=== PATIENT | female | born 1940 | race African-American/Black ===

== ENCOUNTER → 2016-05-19 | Outpatient (CLI) | payer MEDICARE, OTHER ==
[2016-05-19 10:57] LABS: ABSOLUTE EOSINOPHILS # (AUTO) 0.1 10^3/uL (0.0-0.6); ABSOLUTE LYMPHOCYTES (AUTO) 1.3 10^3/uL (0.5-4.7); ABSOLUTE MONOCYTES (AUTO) 0.5 10^3/uL (0.1-1.4); ABSOLUTE NEUT (AUTO) 1.7 10^3/uL (1.7-8.2); BASOPHILS % (AUTO) 1.2 % (0-2); HEMATOCRIT 39.5 % (36.0-47.0); HEMOGLOBIN 12.3 g/dL (12.0-15.5); HGB HCT DIFFERENCE -2.6; LYMPHOCYTES % (AUTO) 36.4 % (13-45); MEAN CORPUSCULAR HEMOGLOBIN 29.5 pg (27.0-33.4); MEAN CORPUSCULAR HGB CONC 31.3 g/dL (32.0-36.0); MEAN CORPUSCULAR VOLUME 94 fl (80-97); MONOCYTES % (AUTO) 13.8 % (3-13); RED BLOOD COUNT 4.18 10^6/uL (3.72-5.28); RED CELL DISTRIBUTION WIDTH 13.8 % (11.5-14.0); SEGMENTED NEUTROPHILS % (AUTO) 45.6 % (42-78); WHITE BLOOD COUNT 3.7 10^3/uL (4.0-10.5)
[2016-05-19 11:32] LABS: ALANINE AMINOTRANSFERASE 22 U/L (9-52); ALBUMIN 3.6 g/dL (3.5-5.0); ALKALINE PHOSPHATASE 86 U/L (38-126); ANION GAP 12 (5-19); ASPARTATE AMINO TRANSFERASE 21 U/L (14-36); BILIRUBIN,TOTAL 0.5 mg/dL (0.2-1.3); BLOOD UREA NITROGEN 16 mg/dL (7-20); CALCIUM 8.7 mg/dL (8.4-10.2); CARBON DIOXIDE 27 mmol/L (22-30); CHLORIDE 103 mmol/L (98-107); GLUCOSE 102 mg/dL (75-110); POTASSIUM 4.3 mmol/L (3.6-5.0); SODIUM 141.5 mmol/L (137-145); TOTAL PROTEIN 6.7 g/dL (6.3-8.2)
[2016-05-19 11:35] LABS: FREE T3 2.72 pg/mL (2.77-5.27)
[2016-05-19 11:49] LABS: THYROID STIMULATING HORMONE 1.39 uIU/mL (0.47-4.68)
[2016-05-20 14:38] LABS: CREATININE URINE 159.2 mg/dL (Not Estab.); MICROALBUMIN URINE 7.8 ug/mL (Not Estab.)
== END ==
LOC: OD 09:23
PROVIDERS: ATTEND Family Medicine
DX: E11.9 Type 2 diabetes mellitus without complications (principal); E89.0 Postprocedural hypothyroidism; Z79.899 Other long term (current) drug therapy
CPT/HCPCS: 36415; 80048; 80076; 82043; 82570; 83036; 84439; 84443; 84481; 85025

== ENCOUNTER → 2016-08-17 | Outpatient (CLI) | payer MEDICARE, OTHER ==
[2016-08-17 10:59] LABS: ABSOLUTE BASOPHILS # (AUTO) 0.1 10^3/uL (0.0-0.2); ABSOLUTE EOSINOPHILS # (AUTO) 0.1 10^3/uL (0.0-0.6); ABSOLUTE LYMPHOCYTES (AUTO) 1.2 10^3/uL (0.5-4.7); ABSOLUTE MONOCYTES (AUTO) 0.6 10^3/uL (0.1-1.4); ABSOLUTE NEUT (AUTO) 2.1 10^3/uL (1.7-8.2); EOSINOPHILS % (AUTO) 1.9 % (0-6); HEMATOCRIT 37.4 % (36.0-47.0); HEMOGLOBIN 12.5 g/dL (12.0-15.5); HGB HCT DIFFERENCE 0.1; LYMPHOCYTES % (AUTO) 29.5 % (13-45); MEAN CORPUSCULAR HEMOGLOBIN 29.9 pg (27.0-33.4); MEAN CORPUSCULAR HGB CONC 33.4 g/dL (32.0-36.0); MEAN CORPUSCULAR VOLUME 89 fl (80-97); MONOCYTES % (AUTO) 15.2 % (3-13); RED BLOOD COUNT 4.18 10^6/uL (3.72-5.28); RED CELL DISTRIBUTION WIDTH 13.7 % (11.5-14.0); SEGMENTED NEUTROPHILS % (AUTO) 51.4 % (42-78); WHITE BLOOD COUNT 4.1 10^3/uL (4.0-10.5)
[2016-08-17 11:24] LABS: ALANINE AMINOTRANSFERASE 31 U/L (9-52); ALBUMIN 3.9 g/dL (3.5-5.0); ALKALINE PHOSPHATASE 98 U/L (38-126); ANION GAP 12 (5-19); ASPARTATE AMINO TRANSFERASE 19 U/L (14-36); BILIRUBIN,DIRECT 0.1 mg/dL (0.0-0.4); BILIRUBIN,TOTAL 0.6 mg/dL (0.2-1.3); BLOOD UREA NITROGEN 14 mg/dL (7-20); CALCIUM 9.3 mg/dL (8.4-10.2); CARBON DIOXIDE 24 mmol/L (22-30); CHLORIDE 104 mmol/L (98-107); CREATININE RESULT 0.69 mg/dL (0.52-1.25); GLUCOSE 122 mg/dL (75-110); POTASSIUM 4.4 mmol/L (3.6-5.0); TOTAL PROTEIN 6.9 g/dL (6.3-8.2)
[2016-08-17 11:40] LABS: FREE T3 3.01 pg/mL (2.77-5.27)
[2016-08-17 11:54] LABS: THYROID STIMULATING HORMONE 0.13 uIU/mL (0.47-4.68)
== END ==
LOC: OD 09:45
PROVIDERS: ATTEND Family Medicine
DX: Z79.899 Other long term (current) drug therapy (principal); E89.0 Postprocedural hypothyroidism; E11.9 Type 2 diabetes mellitus without complications
CPT/HCPCS: 36415; 80053; 83036; 84439; 84443; 84481; 85025

== ENCOUNTER → 2016-11-20 | Outpatient (CLI) | payer MEDICARE, OTHER ==
[2016-11-20 11:49] LABS: ABSOLUTE EOSINOPHILS # (AUTO) 0.1 10^3/uL (0.0-0.6); ABSOLUTE LYMPHOCYTES (AUTO) 1.2 10^3/uL (0.5-4.7); ABSOLUTE MONOCYTES (AUTO) 0.6 10^3/uL (0.1-1.4); ABSOLUTE NEUT (AUTO) 1.8 10^3/uL (1.7-8.2); BASOPHILS % (AUTO) 1.3 % (0-2); HEMATOCRIT 39.7 % (36.0-47.0); HEMOGLOBIN 13.1 g/dL (12.0-15.5); HGB HCT DIFFERENCE -0.4; LYMPHOCYTES % (AUTO) 32.6 % (13-45); MEAN CORPUSCULAR HEMOGLOBIN 30.4 pg (27.0-33.4); MEAN CORPUSCULAR VOLUME 92 fl (80-97); MONOCYTES % (AUTO) 15.2 % (3-13); RED BLOOD COUNT 4.32 10^6/uL (3.72-5.28); RED CELL DISTRIBUTION WIDTH 14.4 % (11.5-14.0); SEGMENTED NEUTROPHILS % (AUTO) 48.9 % (42-78); WHITE BLOOD COUNT 3.6 10^3/uL (4.0-10.5)
[2016-11-20 11:53] LABS: APPEARANCE,URINE CLEAR; BILIRUBIN,URINE NEGATIVE (NEGATIVE); GLUCOSE, URINE NEGATIVE (NEGATIVE); KETONES,URINE NEGATIVE (NEGATIVE); LEUKOCYTE ESTERASE,URINE TRACE (NEGATIVE); NITRITE,URINE NEGATIVE (NEGATIVE); PROTEIN,URINE NEGATIVE (NEGATIVE); URINE SPECIFIC GRAVITY 1.016; UROBILINOGEN,URINE NEGATIVE mg/dL (<2.0)
[2016-11-20 12:17] LABS: CHOLESTEROL 130.14 mg/dL (0-200); Direct HDL 53 mg/dL (>40); TRIGLYCERIDES 45 mg/dL (<150)
[2016-11-20 12:18] LABS: ALANINE AMINOTRANSFERASE 29 U/L (9-52); ALBUMIN 3.8 g/dL (3.5-5.0); ALKALINE PHOSPHATASE 89 U/L (38-126); ANION GAP 8 (5-19); ASPARTATE AMINO TRANSFERASE 21 U/L (14-36); BILIRUBIN,DIRECT 0.3 mg/dL (0.0-0.4); BILIRUBIN,TOTAL 0.7 mg/dL (0.2-1.3); BLOOD UREA NITROGEN 15 mg/dL (7-20); CALCIUM 9.3 mg/dL (8.4-10.2); CARBON DIOXIDE 28 mmol/L (22-30); CHLORIDE 103 mmol/L (98-107); CREATININE RESULT 0.94 mg/dL (0.52-1.25); GLUCOSE 110 mg/dL (75-110); POTASSIUM 4.1 mmol/L (3.6-5.0); SODIUM 139.4 mmol/L (137-145)
[2016-11-20 12:30] LABS: DIRECT LDL 65 mg/dL (<100)
[2016-11-20 12:38] LABS: FREE T3 3.27 pg/mL (2.77-5.27)
[2016-11-20 12:52] LABS: THYROID STIMULATING HORMONE 0.28 uIU/mL (0.47-4.68)
[2016-11-21 10:38] LABS: CREATININE URINE 157.9 mg/dL (Not Estab.); MICROALBUMIN URINE 7.6 ug/mL (Not Estab.)
== END ==
LOC: OD 09:59
PROVIDERS: ATTEND Family Medicine
DX: E89.0 Postprocedural hypothyroidism (principal); E11.9 Type 2 diabetes mellitus without complications; E78.5 Hyperlipidemia, unspecified; Z79.01 Long term (current) use of anticoagulants; Z79.899 Other long term (current) drug therapy
CPT/HCPCS: 36415; 80053; 80061; 81001; 82043; 82570; 83036; 83540; 83550; 84439; 84443; 84481; 85025

== ENCOUNTER → 2017-02-05 | Outpatient (CLI) | payer MEDICARE, OTHER ==
[2017-02-05 14:29] LABS: ANION GAP 10 (5-19); BLOOD UREA NITROGEN 18 mg/dL (7-20); CALCIUM 9.5 mg/dL (8.4-10.2); CARBON DIOXIDE 24 mmol/L (22-30); CHLORIDE 106 mmol/L (98-107); CREATININE RESULT 0.75 mg/dL (0.52-1.25); GLUCOSE 127 mg/dL (75-110); POTASSIUM 4.2 mmol/L (3.6-5.0); SODIUM 139.6 mmol/L (137-145)
== END ==
LOC: OD 13:36
PROVIDERS: ATTEND Family Medicine
DX: E11.9 Type 2 diabetes mellitus without complications (principal)
CPT/HCPCS: 36415; 80048; 83036

== ENCOUNTER → 2017-03-22 | Outpatient (CLI) | payer MEDICARE, OTHER ==
--- NOTE | 2017-03-22 10:44 | WOMENS IMAGING REPORT ---
EXAM DESCRIPTION: BONE DENSITY HIP/SPINE COMPLETED DATE/TIME: 03/22/2017 10:09 am REASON FOR STUDY: SCREENING MAMMO,HX OF HEALED OSTEO FX Z12.31 ENCNTR SCREEN MAMMOGRAM FOR MALIGNAN T NEOPLASM OF EMILIE Z87.310 PERSONAL HISTORY OF (HEALED) OSTEOPOROSIS FRACTURE COMPARISON: 2003, 2006 TECHNIQUE: Dual-Energy X-ray Absorptiometry (DEXA) of the AP Spine and Hip. LIMITATIONS: None. FINDINGS: LUMBAR SPINE: The bone mineral density (BMD) measured from L1-L4 in the AP projection correlates with a T-score of +0.6, which is normal as defined by the World Health Organization. This is similar compared to previ ous exams HIP: The bone mineral density (BMD) measured in the left femoral neck at the hip correlates with a T-score of +0.6, which is normal as defined by the World Health Organization. This is similar compared to p revious exams IMPRESSION: 1. LUMBAR SPINE: Normal 2. HIP: Normal COMMENT: The World Health Organization defines low BMD as follows: T-score: Normal: Greater than -1.0 Osteopenia: Between -1.0 and -2.5 Osteoporosis: Less than -2.5 without fractures Established osteoporosis: Less than -2.5 with fractures In general, you may wish to consider: Diagnosis Treatment Follow-up DEXA Normal BMD Prevention 2-3 years Osteopenia Prevention/Therapy 1-2 years Osteoporosis Therapy Yearly TECHNICAL DOCUMENTATION: JOB ID: [id number]- All Rights Reserved
--- NOTE | 2017-03-22 16:08 | WOMENS IMAGING REPORT ---
EXAM DESCRIPTION: BILAT SCREENING MAMMO W/CAD COMPLETED DATE/TIME: 03/22/2017 10:09 am REASON FOR STUDY: SCREENING MAMMO,HX OF HEALED OSTEO FX Z12.31 ENCNTR SCREEN MAMMOGRAM FOR MALIGNAN T NEOPLASM OF EMILIE Z87.310 PERSONAL HISTORY OF (HEALED) OSTEOPOROSIS FRACTURE COMPARISON: 2009, 2010 TECHNIQUE: Standard craniocaudal and mediolateral oblique views of each breast recorded using digita l acquisition. LIMITATIONS: None. FINDINGS: No masses, calcifications or architectural distortion. No areas of suspicion. Read with the assistance of CAD. .[facility] - R2 Cenova Version 1.3 .[facility] - R2 Cenova Version 1.3 .[facility] - R2 Cenova Version 2.4 .[facility] - R2 Cenova Version 2.4 .[facility] - R2 Bottle Carrier Version 9.2 IMPRESSION: NORMAL MAMMOGRAM. BIRADS 1. BREAST DENSITY: b. There are scattered areas of fibroglandular density. BIRAD: 1 NEGATIVE RECOMMENDATION: ROUTINE SCREENING COMMENT: The patient has been notified of the results by letter per SA requirements. Additional no tification policies are in place for contacting patient with suspicious or incomplete findings. Quality ID #[id number]: The [employer] recommends an annual screening mammogram for women aged 40 years or over. This facility utilizes a reminder system to ensure that all patients receive reminder letters, and/or direct phone calls for appointments. This includes reminders for routine scr eening mammograms, diagnostic mammograms, or other Breast Imaging Interventions when appropriate. Th is patient will be placed in the appropriate reminder system. The [employer] (ACR) has developed recommendations for screening MRI of the breast s in certain patient populations, to be used in conjunction with mammography. Breast MRI surveillanc e may be appropriate for women with more than 20% lifetime risk of developing breast cancer as deter mined by genetic testing, significant family history of the disease, or history of mantle radiation f or Hodgkins Disease. ACR Practice Guidelines 2008. TECHNICAL DOCUMENTATION: FINDING NUMBER: (1) ASSESSMENT: (1) JOB ID: [id number] [employer]- All Rights Reserved
== END ==
LOC: WI 09:26
PROVIDERS: ATTEND Family Medicine
DX: Z12.31 Encounter for screening mammogram for malignant neoplasm of breast (principal); Z87.310 Personal history of (healed) osteoporosis fracture
CPT/HCPCS: 77080; G0202; 77067

== ENCOUNTER → 2017-08-07 | Outpatient (CLI) | payer MEDICARE, OTHER ==
[2017-08-07 11:25] LABS: ABSOLUTE EOSINOPHILS # (AUTO) 0.1 10^3/uL (0.0-0.6); ABSOLUTE LYMPHOCYTES (AUTO) 1.3 10^3/uL (0.5-4.7); ABSOLUTE MONOCYTES (AUTO) 0.6 10^3/uL (0.1-1.4); ABSOLUTE NEUT (AUTO) 1.6 10^3/uL (1.7-8.2); BASOPHILS % (AUTO) 1.2 % (0-2); EOSINOPHILS % (AUTO) 1.7 % (0-6); HEMATOCRIT 39.6 % (36.0-47.0); HEMOGLOBIN 13.4 g/dL (12.0-15.5); LYMPHOCYTES % (AUTO) 35.6 % (13-45); MEAN CORPUSCULAR HGB CONC 33.9 g/dL (32.0-36.0); MEAN CORPUSCULAR VOLUME 91 fl (80-97); MONOCYTES % (AUTO) 16.6 % (3-13); PLATELET COUNT 240 10^3/uL (150-450); RED BLOOD COUNT 4.33 10^6/uL (3.72-5.28); RED CELL DISTRIBUTION WIDTH 13.5 % (11.5-14.0); SEGMENTED NEUTROPHILS % (AUTO) 44.9 % (42-78); TOTAL CELLS COUNTED % (AUTO) 100 %; WHITE BLOOD COUNT 3.7 10^3/uL (4.0-10.5)
[2017-08-07 11:57] LABS: ALANINE AMINOTRANSFERASE 32 U/L (9-52); ALBUMIN 3.9 g/dL (3.5-5.0); ALKALINE PHOSPHATASE 86 U/L (38-126); ANION GAP 5 (5-19); ASPARTATE AMINO TRANSFERASE 23 U/L (14-36); BILIRUBIN,DIRECT 0.3 mg/dL (0.0-0.4); BILIRUBIN,TOTAL 0.6 mg/dL (0.2-1.3); BLOOD UREA NITROGEN 15 mg/dL (7-20); CALCIUM 9.8 mg/dL (8.4-10.2); CARBON DIOXIDE 32 mmol/L (22-30); CHLORIDE 105 mmol/L (98-107); GLUCOSE 121 mg/dL (75-110); POTASSIUM 4.5 mmol/L (3.6-5.0); SODIUM 141.9 mmol/L (137-145); TOTAL PROTEIN 7.2 g/dL (6.3-8.2); TRIGLYCERIDES 56 mg/dL (<150)
[2017-08-07 12:07] LABS: DIRECT LDL 113 mg/dL (<100)
[2017-08-07 12:08] LABS: FREE T3 3.11 pg/mL (2.77-5.27); FREE T4 (FREE THYROXINE) 1.43 ng/dL (0.78-2.19)
[2017-08-07 12:22] LABS: THYROID STIMULATING HORMONE 0.04 uIU/mL (0.47-4.68)
[2017-08-08 10:38] LABS: CREATININE URINE 168.5 mg/dL (Not Estab.); MICROALBUMIN URINE 8.8 ug/mL (Not Estab.)
== END ==
LOC: OD 10:33
PROVIDERS: ATTEND Family Medicine
DX: E89.0 Postprocedural hypothyroidism (principal); E11.9 Type 2 diabetes mellitus without complications; E78.5 Hyperlipidemia, unspecified; Z79.01 Long term (current) use of anticoagulants; Z79.899 Other long term (current) drug therapy
CPT/HCPCS: 36415; 80053; 80061; 82043; 82570; 83036; 84439; 84443; 84481; 85025

== ENCOUNTER → 2017-12-06 | Outpatient (CLI) | payer MEDICARE, OTHER ==
[2017-12-06 11:43] LABS: ALANINE AMINOTRANSFERASE 28 U/L (9-52); ALBUMIN 3.6 g/dL (3.5-5.0); ALKALINE PHOSPHATASE 83 U/L (38-126); ANION GAP 10 (5-19); ASPARTATE AMINO TRANSFERASE 21 U/L (14-36); BILIRUBIN,DIRECT 0.2 mg/dL (0.0-0.4); BILIRUBIN,TOTAL 0.7 mg/dL (0.2-1.3); BLOOD UREA NITROGEN 13 mg/dL (7-20); CALCIUM 8.8 mg/dL (8.4-10.2); CARBON DIOXIDE 26 mmol/L (22-30); CHLORIDE 105 mmol/L (98-107); CHOLESTEROL 118.78 mg/dL (0-200); CREATINE KINASE 105 U/L (30-135); GLUCOSE 112 mg/dL (75-110); POTASSIUM 4.2 mmol/L (3.6-5.0); SODIUM 141.4 mmol/L (137-145); TOTAL PROTEIN 6.7 g/dL (6.3-8.2); TRIGLYCERIDES 52 mg/dL (<150)
[2017-12-06 11:53] LABS: FREE T3 3.2 pg/mL (2.77-5.27); FREE T4 (FREE THYROXINE) 1.64 ng/dL (0.78-2.19)
[2017-12-06 11:55] LABS: DIRECT LDL 57 mg/dL (<100)
[2017-12-06 12:07] LABS: THYROID STIMULATING HORMONE 0.43 uIU/mL (0.47-4.68)
== END ==
LOC: OD 09:58
PROVIDERS: ATTEND Family Medicine
DX: E78.5 Hyperlipidemia, unspecified (principal); E89.0 Postprocedural hypothyroidism; E11.9 Type 2 diabetes mellitus without complications
CPT/HCPCS: 36415; 80048; 80061; 80076; 82550; 83036; 84439; 84443; 84481

== ENCOUNTER → 2018-02-12 | Outpatient (CLI) | payer MEDICARE, OTHER ==
[2018-02-12 13:51] LABS: ABSOLUTE EOSINOPHILS # (AUTO) 0.1 10^3/uL (0.0-0.6); ABSOLUTE LYMPHOCYTES (AUTO) 1.3 10^3/uL (0.5-4.7); ABSOLUTE MONOCYTES (AUTO) 0.6 10^3/uL (0.1-1.4); ABSOLUTE NEUT (AUTO) 2.2 10^3/uL (1.7-8.2); BASOPHILS % (AUTO) 1.1 % (0-2); EOSINOPHILS % (AUTO) 1.3 % (0-6); HEMATOCRIT 38.4 % (36.0-47.0); HEMOGLOBIN 12.9 g/dL (12.0-15.5); LYMPHOCYTES % (AUTO) 30.7 % (13-45); MEAN CORPUSCULAR HEMOGLOBIN 31.3 pg (27.0-33.4); MEAN CORPUSCULAR HGB CONC 33.6 g/dL (32.0-36.0); MEAN CORPUSCULAR VOLUME 93 fl (80-97); MONOCYTES % (AUTO) 13.5 % (3-13); PLATELET COUNT 229 10^3/uL (150-450); RED BLOOD COUNT 4.12 10^6/uL (3.72-5.28); SEGMENTED NEUTROPHILS % (AUTO) 53.4 % (42-78); TOTAL CELLS COUNTED % (AUTO) 100 %; WHITE BLOOD COUNT 4.1 10^3/uL (4.0-10.5)
== END ==
LOC: OD 12:29
PROVIDERS: ATTEND Family Medicine
DX: I48.2 Chronic atrial fibrillation (principal); Z79.01 Long term (current) use of anticoagulants
CPT/HCPCS: 36415; 85025

== ENCOUNTER → 2018-04-02 | Outpatient (CLI) | payer MEDICARE, OTHER ==
--- NOTE | 2018-04-02 12:13 | WOMENS IMAGING REPORT ---
EXAM DESCRIPTION: 3D SCREENING MAMMO BILAT COMPLETED DATE/TIME: 04/02/2018 10:51 am REASON FOR STUDY: SCREENING MAMMO Z12.31 ENCNTR SCREEN MAMMOGRAM FOR MALIGNANT NEOPLASM OF EMILIE COMPARISON: Multiple since 2009 TECHNIQUE: Standard craniocaudal and mediolateral oblique views of each breast recorded using digita l acquisition and breast tomosynthesis. LIMITATIONS: None. FINDINGS: No masses, calcifications or architectural distortion. No areas of suspicion. Read with the assistance of CAD. .[facility] - R2 Cenova Version 1.3 .[facility] Imaging - R2 Cenova Version 1.3 .[facility] Imaging - R2 Cenova Version 2.4 .[facility] - R2 Cenova Version 2.4 .[facility] - R2 Geriatric Social Worker Version 9.2 IMPRESSION: NORMAL MAMMOGRAM. BIRADS 1. BREAST DENSITY: b. There are scattered areas of fibroglandular density. BIRAD: 1 NEGATIVE RECOMMENDATION: ROUTINE SCREENING Please continue yearly bilateral screening mammography/tomosynthesis in March 2019 COMMENT: The patient has been notified of the results by letter per SA requirements. Additional no tification policies are in place for contacting patient with suspicious or incomplete findings. Quality ID #[id number]: The [employer] recommends an annual screening mammogram for women aged 40 years or over. This facility utilizes a reminder system to ensure that all patients receive reminder letters, and/or direct phone calls for appointments. This includes reminders for routine scr eening mammograms, diagnostic mammograms, or other Breast Imaging Interventions when appropriate. Th is patient will be placed in the appropriate reminder system. The [employer] (ACR) has developed recommendations for screening MRI of the breast s in certain patient populations, to be used in conjunction with mammography. Breast MRI surveillanc e may be appropriate for women with more than 20% lifetime risk of developing breast cancer as deter mined by genetic testing, significant family history of the disease, or history of mantle radiation f or Hodgkins Disease. ACR Practice Guidelines 2008. DBT Technology DBT is a type of tomographic mammography. With conventional mammography, overlapping breast tissue ma y make lesions difficult to detect, even with good compression. DBT uses an x-ray tube that rotates a round the breast, taking images at different angles. These images are then combined to create thin sl ices of the breast that the radiologist can view as a 3D reconstruction. The Metafused unit can perform full-field digital mammograms (2D imaging); or DBT (3D imaging); or both, in a combination mode that quickly performs both the mammogram and the tomosynthesis scan while the breast is still compressed. PQRS 6045F: Fluoroscopic imaging is not utilized for breast tomosynthesis. TECHNICAL DOCUMENTATION: FINDING NUMBER: (1) ASSESSMENT: (1) JOB ID: [id number] [employer]- All Rights Reserved Reading location - IP/workstation name: [email or web address]-RR2
== END ==
LOC: WI 10:12
PROVIDERS: ATTEND Family Medicine
DX: Z12.31 Encounter for screening mammogram for malignant neoplasm of breast (principal)
CPT/HCPCS: 77063; 77067

== ENCOUNTER → 2018-06-12 | Outpatient (CLI) | payer MEDICARE, OTHER ==
[2018-06-12 08:50] LABS: ABSOLUTE EOSINOPHILS # (AUTO) 0.1 10^3/uL (0.0-0.6); ABSOLUTE LYMPHOCYTES (AUTO) 1.6 10^3/uL (0.5-4.7); ABSOLUTE MONOCYTES (AUTO) 0.5 10^3/uL (0.1-1.4); ABSOLUTE NEUT (AUTO) 1.5 10^3/uL (1.7-8.2); BASOPHILS % (AUTO) 1.2 % (0-2); EOSINOPHILS % (AUTO) 2.3 % (0-6); HEMATOCRIT 39.9 % (36.0-47.0); HEMOGLOBIN 13.6 g/dL (12.0-15.5); LYMPHOCYTES % (AUTO) 43.2 % (13-45); MEAN CORPUSCULAR HEMOGLOBIN 31.8 pg (27.0-33.4); MEAN CORPUSCULAR VOLUME 94 fl (80-97); PLATELET COUNT 172 10^3/uL (150-450); RED BLOOD COUNT 4.27 10^6/uL (3.72-5.28); RED CELL DISTRIBUTION WIDTH 14.2 % (11.5-14.0); SEGMENTED NEUTROPHILS % (AUTO) 40.3 % (42-78); TOTAL CELLS COUNTED % (AUTO) 100 %; WHITE BLOOD COUNT 3.7 10^3/uL (4.0-10.5)
== END ==
LOC: OD 08:10
PROVIDERS: ATTEND Family Medicine
DX: E11.9 Type 2 diabetes mellitus without complications (principal); Z79.01 Long term (current) use of anticoagulants
CPT/HCPCS: 36415; 83036; 85025

== ENCOUNTER → 2018-08-07 | Outpatient (CLI) | payer MEDICARE, OTHER ==
[2018-08-07 10:59] LABS: ALANINE AMINOTRANSFERASE 21 U/L (9-52); ALBUMIN 3.8 g/dL (3.5-5.0); ALKALINE PHOSPHATASE 93 U/L (38-126); ANION GAP 5 (5-19); ASPARTATE AMINO TRANSFERASE 22 U/L (14-36); BILIRUBIN,DIRECT 0.3 mg/dL (0.0-0.4); BILIRUBIN,TOTAL 0.5 mg/dL (0.2-1.3); BLOOD UREA NITROGEN 17 mg/dL (7-20); CALCIUM 9.5 mg/dL (8.4-10.2); CARBON DIOXIDE 29 mmol/L (22-30); CHLORIDE 106 mmol/L (98-107); CHOLESTEROL 161.19 mg/dL (0-200); GLUCOSE 118 mg/dL (75-110); POTASSIUM 4.2 mmol/L (3.6-5.0); SODIUM 140.3 mmol/L (137-145); TOTAL PROTEIN 7.1 g/dL (6.3-8.2); TRIGLYCERIDES 56 mg/dL (<150)
[2018-08-07 11:10] LABS: DIRECT LDL 101 mg/dL (<100)
[2018-08-08 12:38] LABS: CREATININE URINE 190.3 mg/dL (Not Estab.); MICROALBUMIN URINE 22.4 ug/mL (Not Estab.)
== END ==
LOC: OD 09:52
PROVIDERS: ATTEND Family Medicine
DX: E11.9 Type 2 diabetes mellitus without complications (principal); E78.5 Hyperlipidemia, unspecified; I10 Essential (primary) hypertension
CPT/HCPCS: 36415; 80053; 80061; 82043; 82570

== ENCOUNTER → 2018-08-23 | Outpatient (CLI) | payer MEDICARE, OTHER ==
[2018-08-23 08:29] LABS: ABSOLUTE EOSINOPHILS # (AUTO) 0.1 10^3/uL (0.0-0.6); ABSOLUTE LYMPHOCYTES (AUTO) 1.2 10^3/uL (0.5-4.7); ABSOLUTE MONOCYTES (AUTO) 0.5 10^3/uL (0.1-1.4); ABSOLUTE NEUT (AUTO) 1.7 10^3/uL (1.7-8.2); BASOPHILS % (AUTO) 1.3 % (0-2); EOSINOPHILS % (AUTO) 1.8 % (0-6); HEMATOCRIT 37.6 % (36.0-47.0); HEMOGLOBIN 12.7 g/dL (12.0-15.5); LYMPHOCYTES % (AUTO) 34.2 % (13-45); MEAN CORPUSCULAR HEMOGLOBIN 31.6 pg (27.0-33.4); MEAN CORPUSCULAR HGB CONC 33.8 g/dL (32.0-36.0); MEAN CORPUSCULAR VOLUME 93 fl (80-97); MONOCYTES % (AUTO) 13.7 % (3-13); PLATELET COUNT 217 10^3/uL (150-450); RED BLOOD COUNT 4.03 10^6/uL (3.72-5.28); RED CELL DISTRIBUTION WIDTH 14.2 % (11.5-14.0); TOTAL CELLS COUNTED % (AUTO) 100 %; WHITE BLOOD COUNT 3.5 10^3/uL (4.0-10.5)
[2018-08-23 09:16] LABS: FREE T3 2.97 pg/mL (2.77-5.27); FREE T4 (FREE THYROXINE) 1.25 ng/dL (0.78-2.19)
[2018-08-23 09:30] LABS: THYROID STIMULATING HORMONE 7.61 uIU/mL (0.47-4.68)
== END ==
LOC: OD 07:58
PROVIDERS: ATTEND Family Medicine
DX: E89.0 Postprocedural hypothyroidism (principal); Z79.01 Long term (current) use of anticoagulants
CPT/HCPCS: 36415; 84439; 84443; 84481; 85025

== ENCOUNTER 2018-09-27 18:54 | Observation (INO) | payer MEDICARE, OTHER ==
--- NOTE | 2018-09-27 19:11 | ER Document Report ---
ED Medical Screen (RME) - General Chief Complaint: S/S of Possible Stroke Stated Complaint: POSSIBLE STROKE Time Seen by Provider: 09/27/18 19:06 Primary Care Provider: ORA MICHAEL MD [Primary Care Provider] - Follow up as needed TRAVEL OUTSIDE OF THE [place] IN LAST 30 DAYS: No - HPI Notes: 09/27/18 19:07 Patient is a 77-year-old female with a history of A. fib (on Coumadin), hyp ertension, diabetes who presents for possible stroke. She is accompanied by her daughter who notes that 6:20 PM today she got off the phone and tried to explain to the daughter with a phone call was about when all of a sudden she could not produce words and she could not recall information. She also started complaining of left-sided headache and right arm weakness/tingling at that time. Daughter states that that lasted for about 10 minutes, but then started to improve. Since then her symptoms have resolved. Last known normal was at 6:20 PM. Patient states that she is feeling well at this time. No history of previous CVA, TIA, [place]. Denies any fever, head injury, neck pain, changes in vision/mentation/hearing, URI, sore throat, chest pain, palpitations, syncope, cough, shortness of breath, wheeze, dyspnea, abdominal pain, nausea/vomiting/diarrhea, urinary retention, dysuria, hematuria, loss of control of bowel or bladder, saddle anesthesia, muscle paralysis, or rash. Denies CANO, fever, neck pain, URI, CP, SOB, Abd pain, or rash. I have treated and performed a rapid initial assessment of this patient. A comprehensive ED assessment and evaluation of the patient, analysis of test results and completion of medical decision making process will be conducted by additional ED providers. PHYSICAL EXAMINATION: GENERAL: Well-appearing, well-nourished and in no acute distress. A&Ox4. Answers questions appropriately. HEAD: Atraumatic, normocephalic. Non-tender. EYES: Pupils equal round and reactive to light, extraocular movements intact, sclera anicteric, conjunctiva are normal. No nystagmus. vis schultz intact. ENT: Nares patent and without discharge. oropharynx clear without exudates. No tonsilar hypertrophy or erythema. Moist mucous membranes. NECK: Normal range of motion, supple without lymphadenopathy. No rigidity/meningismus. No midline tenderness. LUNGS: Breath sounds clear to auscultation bilaterally and equal. No wheezes rales or rhonchi. HEART: Regular rate and rhythm without murmurs, rubs, gallops. ABDOMEN: Soft, nontender, nondistended abdomen. No guarding, no rebound. Normal bowel sounds present. No CVA tenderness bilaterally. Musculoskeletal: Ext's b/l: FROM to passive/active. Strength 5+/5. No deficits noted. No bony tenderness of extremities. Extremities: No cyanosis, clubbing, or edema b/l. Peripheral pulses 2+. Capillary refill less than 2 seconds. NEUROLOGICAL: NIH 0. GCS 15. Cranial nerves grossly intact. Normal speech, normal gait. Normal sensory, motor exams. Reflexes 2+ b/l. SHERLYN's negative. Pr onator drift negative. Heel/ortega, finger/nose wnl. Rhomberg neg. PSYCH: Normal mood, normal affect. SKIN: Warm, Dry, normal turgor, no rashes or lesions noted. - Related Data Allergies/Adverse Reactions: sulfamethoxazole [From Septra DS] Allergy (Verified 02/02/14 07:04) trimethoprim [From Septra DS] Allergy (Verified 02/02/14 07:04) Past Medical History - Past Medical History Cardiac Medical History: Reports: Hx Atrial Fibrillation, Hx Hypercholesterolemia, Hx Hypertension Pulmonary Medical History: Reports: Hx COPD Endocrine Medical History: Reports: Hx Diabetes Mellitus Type 2 Past Surgical History: Reports: Hx Hysterectomy, Hx Tonsillectomy - Immunizations Hx Diphtheria, Pertussis, Tetanus Vaccination: No Doctor's Discharge - Discharge Referrals: ORA MICHAEL MD [Primary Care Provider] - Follow up as needed
--- NOTE | 2018-09-27 19:33 | RADIOLOGY REPORT (SQ) ---
EXAM DESCRIPTION: CT HEAD WITHOUT COMPLETED DATE/TIME: 09/27/2018 7:20 pm REASON FOR STUDY: poss. stroke, rt side weakness-dysphasia, resolved COMPARISON: None. TECHNIQUE: Axial images acquired through the brain without intravenous contrast. Images reviewed wi th bone, brain and subdural windows. Additional sagittal and coronal reconstructions were generated. Images stored on PACS. All CT scanners at this facility use dose modulation, iterative reconstruction, and/or weight based d osing when appropriate to reduce radiation dose to as low as reasonably achievable (ALARA). [facility]: Dose Right [facility]: CareDose [facility]: Dose Right [facility]: Teradose 4D [facility]: Smart Runa RADIATION DOSE: CT Rad equipment meets quality standard of care and radiation dose reduction techniq ues were employed. CTDIvol: 53.2 mGy. DLP: 964 mGy-cm. mGy. LIMITATIONS: None. FINDINGS: VENTRICLES: Prominent. CEREBRUM: No masses. No hemorrhage. No midline shift. Areas of low density in the white matter mos t likely due to chronic micro-vascular ischemic change. No evidence for acute infarction. CEREBELLUM: No masses. No hemorrhage. No alteration of density. No evidence for acute infarction. EXTRAAXIAL SPACES: Mild age-related involutional change. No fluid collections. No masses. ORBITS AND GLOBE: No intra- or extraconal masses. Normal contour of globe without masses. CALVARIUM: No fracture. PARANASAL SINUSES: No fluid or mucosal thickening. SOFT TISSUES: No mass or hematoma. OTHER: No other significant finding. IMPRESSION: MILD CHRONIC CHANGES OF ATROPHY AND MICROVASCULAR ISCHEMIA. NO ACUTE PROCESS. EVIDENCE OF ACUTE STROKE: NO. COMMENT: Pertinent positive or negative findings of the imaging study reported as a CRITICAL EXAM pino PRITCHARD PA-C at19:27 on 09/27/2018. Category of Critical Exam: Stroke alert TECHNICAL DOCUMENTATION: JOB ID: [id number] Quality ID # [id number]: Final reports with documentation of one or more dose reduction techniques (e.g., Au tomated exposure control, adjustment of the mA and/or kV according to patient size, use of iterative reconstruction technique) 2010 [employer]- All Rights Reserved Reading location - IP/workstation name: [email or web address] [id number]
[2018-09-27 20:16] LABS: ABSOLUTE EOSINOPHILS # (AUTO) 0.1 10^3/uL (0.0-0.6); ABSOLUTE LYMPHOCYTES (AUTO) 1.7 10^3/uL (0.5-4.7); ABSOLUTE MONOCYTES (AUTO) 0.6 10^3/uL (0.1-1.4); ABSOLUTE NEUT (AUTO) 1.4 10^3/uL (1.7-8.2); BASOPHILS % (AUTO) 1.1 % (0-2); EOSINOPHILS % (AUTO) 1.4 % (0-6); HEMATOCRIT 40.2 % (36.0-47.0); HEMOGLOBIN 13.6 g/dL (12.0-15.5); LYMPHOCYTES % (AUTO) 45.1 % (13-45); MEAN CORPUSCULAR HEMOGLOBIN 31.1 pg (27.0-33.4); MEAN CORPUSCULAR HGB CONC 33.7 g/dL (32.0-36.0); MEAN CORPUSCULAR VOLUME 92 fl (80-97); MONOCYTES % (AUTO) 15.8 % (3-13); PLATELET COUNT 208 10^3/uL (150-450); RED BLOOD COUNT 4.36 10^6/uL (3.72-5.28); RED CELL DISTRIBUTION WIDTH 14.5 % (11.5-14.0); SEGMENTED NEUTROPHILS % (AUTO) 36.6 % (42-78); TOTAL CELLS COUNTED % (AUTO) 100 %; WHITE BLOOD COUNT 3.7 10^3/uL (4.0-10.5)
[2018-09-27 20:34] LABS: ALANINE AMINOTRANSFERASE 30 U/L (9-52); ALBUMIN 3.9 g/dL (3.5-5.0); ALKALINE PHOSPHATASE 99 U/L (38-126); ANION GAP 10 (5-19); ASPARTATE AMINO TRANSFERASE 21 U/L (14-36); BILIRUBIN,DIRECT 0.2 mg/dL (0.0-0.4); BILIRUBIN,TOTAL 0.5 mg/dL (0.2-1.3); BLOOD UREA NITROGEN 19 mg/dL (7-20); CALCIUM 9.6 mg/dL (8.4-10.2); CARBON DIOXIDE 29 mmol/L (22-30); CHLORIDE 100 mmol/L (98-107); GLUCOSE 98 mg/dL (75-110); INTERNATIONAL RATION (INR) 1.01; POTASSIUM 4.3 mmol/L (3.6-5.0); PROTHROMBIN TIME 13.8 SEC (11.4-15.4); SODIUM 138.8 mmol/L (137-145); TOTAL PROTEIN 7.2 g/dL (6.3-8.2)
[2018-09-27 20:35] LABS: PARTIAL THROMBOPLASTIN TIME 31.9 SEC (23.5-35.8)
[2018-09-27] MEDS ORDERED: HYDRALAZINE HCL INJ/PF 20 MG/1 ML SDV IV ONE (21:34)
[2018-09-27] MEDS ORDERED: ACETAMINOPHEN 325 MG TABLET PO ONE (21:34)
--- NOTE | 2018-09-27 21:40 | ER Document Report ---
ED General - General Chief Complaint: S/S of Possible Stroke Stated Complaint: POSSIBLE STROKE Time Seen by Provider: 09/27/18 19:06 Primary Care Provider: ORA MICHAEL MD [Primary Care Provider] - Follow up as needed TRAVEL OUTSIDE OF THE [place] IN LAST 30 DAYS: No - HPI Notes: Patient is a 77-year-old female who presents to the emergency department for evaluation. Presently 30 minutes prior to arrival, the patient was on the phone. She went to describe the phone conversation to her daughter and was unable to speak. According to the daughter she was making grunting noises, and occasional nonsense words. This lasted approximately 3 minutes. After that patient was complaining of right sided numbness, particularly in her upper extremity. No gross facial asymmetry was noted. The patient complained after that of a left-sided headache. She states that at this point she feels all of her symptoms have improved. She does still have some residual right upper extremity numbness per the patient. She denies any history of stroke or mini stroke. She is currently on Xarelto for history of atrial fibrillation. She said no recent head traumas. No visual changes. Moving all 4 extremities spontaneously - Related Data Allergies/Adverse Reactions: sulfamethoxazole [From Septra DS] Allergy (Verified 02/02/14 07:04) trimethoprim [From Septra DS] Allergy (Verified 02/02/14 07:04) Past Medical History - General Information source: Patient - Social History Smoking Status: Current Every Day Smoker Family History: None - Past Medical History Cardiac Medical History: Reports: Hx Atrial Fibrillation, Hx Hypercholesterolemia, Hx Hypertension Pulmonary Medical History: Reports: Hx COPD Endocrine Medical History: Reports: Hx Diabetes Mellitus Type 2 Past Surgical History: Reports: Hx Hysterectomy, Hx Tonsillectomy - Immunizations Hx Diphtheria, Pertussis, Tetanus Vaccination: No Review of Systems - Review of Systems Constitutional: No symptoms reported EENT: No symptoms reported Cardiovascular: No symptoms reported Respiratory: No symptoms reported Gastrointestinal: No symptoms reported Genitourinary: No symptoms reported Musculoskeletal: No symptoms reported Skin: No symptoms reported Neurological/Psychological: See HPI Physical Exam - Notes Notes: Vital signs reviewed, please refer to chart. Head is normocephalic, atraumatic. Pupils equal round, reactive to light. Neck is supple without meningismus. Heart is regular rate and rhythm. Lungs are clear to auscultation bilaterally. Abdomen is soft, nontender, normoactive bowel sounds throughout. Extremities without cyanosis, clubbing. Posterior calves are nontender. Peripheral pulses are equal. Skin is warm and dry. Patient is awake, alert, oriented x3. Cranial nerves II - XII are grossly intact without focal neurological deficits. Strength is plus 5 out of 5 bilateral lower extremities. Sensation is intact. Reflexes symmetrical. Intact [id number], rapid altering movements, [id number]. Course - Re-evaluation Re-evalutation: 09/27/18 21:39 Patient presents emergency department for evaluation. At the time of my evaluation, she had a totally normal neurological exam. Her NIH stroke scale was negative. She had a CT scan per stroke protocol which was found to be negative per radiology. Laboratory investigations were largely insignificant. Her EKG revealed continued atrial fibrillation. She is already on Xarelto. Serial neurological exams failed to reveal any significant deficit. She was noted however to be hypertensive. She states she normally runs in the 130s to 140s. She was given IV hydralazine. 09/27/18 21:57 Patient remained stable. Despite her elevated blood pressure the patient's neurological symptoms had completely resolved. She remained stable. She has no history of TIAs, and I am concerned about a possible subsequent CVA in the coming days. This was explained to the patient as well as her daughter. I spo ke with Dr. Sorensen, he will accept the patient for further care. - Laboratory Result Diagrams: 09/27/18 20:00 09/27/18 20:00 Laboratory results interpreted by me: 09/27/18 09/27/18 20:00 20:00 WBC 3.7 L RDW 14.5 H Seg Neutrophils % 36.6 L Lymphocytes % 45.1 H Monocytes % 15.8 H Absolute Neutrophils 1.4 L Est GFR (Non-Af Amer) 56 L - Diagnostic Test Radiology reviewed: Reports reviewed Radiology results interpreted by me: 09/27/18 21:[address] 09/27/18 19:06 IMPRESSION: MILD CHRONIC CHANGES OF ATROPHY AND MICROVASCULAR ISCHEMIA. NO ACUTE PROCESS. EVIDENCE OF ACUTE STROKE: NO. - EKG Interpretation by Me Additional EKG results interpreted by me: 09/27/18 21:58 Atrial fibrillation with a rate of 64 bpm. Normal axis and intervals. No acute ST changes concerning for ischemia or infarction. Discharge - Discharge Clinical Impression: TIA (transient ischemic attack), Hypertension Condition: Stable Disposition: ADMITTED OBSERVATION Admitting Provider: Edu (Hospitalist) Referrals: ORA MICHAEL MD [Primary Care Provider] - Follow up as needed
[2018-09-27] MEDS ORDERED: GLUCAGON,HUMAN RECOMB 1 MG INJ IM PRN (21:56)
[2018-09-27] MEDS ORDERED: DEXTROSE 40% GEL 15 GM TUBE PO PRN ×2 (21:56)
[2018-09-27] MEDS ORDERED: DEXTROSE 50%-WATER 25 GM/50 ML DISP.SYRIN IV PRN ×2 (21:56)
[2018-09-27] MEDS ORDERED: MAGNESIUM HYDROXIDE SUSP 30 ML UDCUP PO PRN (21:56)
[2018-09-27 22:13] LABS: APPEARANCE,URINE CLEAR; BILIRUBIN,URINE NEGATIVE (NEGATIVE); COLOR,URINE YELLOW; GLUCOSE, URINE NEGATIVE (NEGATIVE); KETONES,URINE NEGATIVE (NEGATIVE); LEUKOCYTE ESTERASE,URINE NEGATIVE (NEGATIVE); NITRITE,URINE NEGATIVE (NEGATIVE); PROTEIN,URINE NEGATIVE (NEGATIVE); URINE SPECIFIC GRAVITY 1.016; UROBILINOGEN,URINE NEGATIVE mg/dL (<2.0)
--- NOTE | 2018-09-27 22:29 | EKG REPORT ---
SEVERITY:- ABNORMAL ECG - ATRIAL FIBRILLATION : Confirmed by: Devin Lopes 27-Sep-2018 22:29:08
[2018-09-27] MEDS ORDERED: ATORVASTATIN CALCIUM 10 MG TABLET PO ONE (22:30)
[2018-09-27] MEDS ORDERED: HYDRALAZINE HCL INJ/PF 20 MG/1 ML SDV IV PRN (23:17)
[2018-09-28] MEDS: AMLODIPINE BESYLATE 5 MG TABLET PO SCH ×3 (00:44→17:00)
[2018-09-28] MEDS: METOPROLOL TARTRATE 50 MG TABLET PO SCH ×2 (00:45→21:14)
[2018-09-28] MEDS: DOCUSATE SODIUM 100 MG CAPSULE PO SCH ×3 (00:46→17:00)
[2018-09-28] MEDS: ACETAMINOPHEN 325 MG TABLET PO PRN ×2 (01:38→19:30)
--- NOTE | 2018-09-28 02:55 | PDOC H&P ---
History of Present Illness Admission Date/PCP: 09/27/18 22:11 ORA MICHAEL MD Patient complains of: Difficulty speaking History of Present Illness: DEANA DALE is a 77 year old female with a past medical history of diabetes, hypertension and atrial fibrillation on Eliquis. She presents 30 minutes after the onset of difficulty with word finding, slurred speech, right-sided numbness with a left-sided headache prompting her to seek evaluation in the emergency ro where she is found to have hypertensive urgency systolic blood pressure in the 190s. Uncontrolled atrial fibrillation in the 90s. Speech symptoms have subsequently resolved without intervention but 4+ out of 5 right upper extremity weakness persists, initial work-up was unremarkable including CT of the head. She receives aspirin in route, Tylenol and hydralazine and referred to the hospitalist for admission. Patient denies previous episode, recent change in medications and is otherwise felt well. Past Medical History Cardiac Medical History: Reports: Atrial Fibrillation, Hyperlipidema, Hypertension Pulmonary Medical History: Reports: Chronic Obstructive Pulmonary Disease (COPD) Endocrine Medical History: Reports: Diabetes Mellitus Type 2 Past Surgical History Past Surgical History: Reports: Hysterectomy, Tonsillectomy Social History Information Source: Patient, Emergency Med Personnel, [facility] Records Smoking Status: Former Smoker Number of Years Smokin Last Time Smoked: 2003 Frequency of Alcohol Use: None Hx Recreational Drug Use: No Drugs: None Hx Prescription Drug Abuse: No - Advance Directive Resuscitation Status: Full Code Family History Family History: Hypertension Parental Family History Reviewed: Yes Children Family History Reviewed: Yes Sibling(s) Family History Reviewed.: Yes Medication/Allergy Home Medications: Albuterol Sulfate [Albuterol Sulfate 2.5mg/3 mL] 1 vial IH Q4 PRN #60 vial 02/02/14 Amlodipine Besylate [Norvasc] 5 mg PO BID 02/02/14 Docusate Sodium [Colace 100 mg Capsule] 100 mg PO BID 02/02/14 Furosemide [Lasix 40 mg Tablet] 40 mg PO QAM 02/02/14 Levothyroxine Sodium 100 mcg PO DAILY 02/02/14 Metformin HCl [Glucophage] 500 mg PO DAILY 02/02/14 Metoprolol Tartrate [Lopressor 100 mg Tablet] 100 mg PO QAM 02/02/14 Metoprolol Tartrate [Lopressor 50 mg Tablet] 50 mg PO QHS 02/02/14 Multivitamin [Daily Vitamin] 1 each PO DAILY 02/02/14 Pravastatin Sodium [Pravachol] 20 mg PO QHS 02/02/14 Prednisone [Deltasone 20 mg Tablet] 3 tab PO DAILY 4 Days tablet 02/02/14 Rivaroxaban [Xarelto] 20 mg PO DAILY 02/02/14 Telmisartan [Micardis 80 mg Tablet] 80 mg PO DAILY 02/02/14 Allergies/Adverse Reactions: sulfamethoxazole [From Septra DS] Allergy (Verified 02/02/14 07:04) trimethoprim [From Septra DS] Allergy (Verified 02/02/14 07:04) Review of Systems Constitutional: ABSENT: chills, fever(s), headache(s), weight gain, weight loss Eyes: ABSENT: visual disturbances Ears: ABSENT: hearing changes Cardiovascular: ABSENT: chest pain, dyspnea on exertion, edema, orthropnea, palpitations Respiratory: ABSENT: cough, hemoptysis Gastrointestinal: ABSENT: abdominal pain, constipation, diarrhea, hematemesis, hematochezia, nausea, vomiting Genitourinary: ABSENT: dysuria, hematuria Musculoskeletal: ABSENT: joint swelling Integumentary: ABSENT: rash, wounds Neurological: ABSENT: abnormal gait, abnormal speech, confusion, dizziness, focal weakness, syncope Psychiatric: ABSENT: anxiety, depression, homidical ideation, suicidal ideation Endocrine: ABSENT: cold intolerance, heat intolerance, polydipsia, polyuria Hematologic/Lymphatic: ABSENT: easy bleeding, easy bruising Physical Exam Vital Signs: Temp Pulse Resp BP Pulse Ox 97.6 F 74 20 150/87 H 98 09/28/18 01:05 09/28/18 01:13 09/28/18 01:13 09/28/18 01:13 09/28/18 01:13 General appearance: PRESENT: no acute distress, well-developed, well-nourished Head exam: PRESENT: atraumatic, normocephalic Eye exam: PRESENT: conjunctiva pink, EOMI, PERRLA. ABSENT: scleral icterus Ear exam: PRESENT: normal external ear exam Mouth exam: PRESENT: moist, tongue midline Neck exam: ABSENT: carotid bruit, JVD, lymphadenopathy, thyromegaly Respiratory exam: PRESENT: clear to auscultation august. ABSENT: rales, rhonchi, wheezes Cardiovascular exam: PRESENT: RRR. ABSENT: diastolic murmur, rubs, systolic murmur Pulses: PRESENT: normal dorsalis pedis pul Vascular exam: PRESENT: normal capillary refill GI/Abdominal exam: PRESENT: normal bowel sounds, soft. ABSENT: distended, guarding, mass, organolmegaly, rebound, tenderness Rectal exam: PRESENT: deferred Extremities exam: PRESENT: full ROM. ABSENT: calf tenderness, clubbing, pedal edema Musculoskeletal exam: PRESENT: other Neurological exam: PRESENT: alert, awake, oriented to person, oriented to place, oriented to time, oriented to situation, CN II-XII grossly intact, other - 4+ out of 5 upper extremity weakness. ABSENT: motor sensory deficit Psychiatric exam: PRESENT: appropriate affect, normal mood. ABSENT: homicidal ideation, suicidal ideation Skin exam: PRESENT: dry, intact, warm. ABSENT: cyanosis, rash Results Laboratory Results: 09/27/18 20:00 09/27/18 20:00 09/27/18 09/27/18 09/27/18 19:47 20:00 20:00 WBC 3.7 L RBC 4.36 Hgb 13.6 Hct 40.2 MCV 92 MCH 31.1 MCHC 33.7 RDW 14.5 H Plt Count 208 Seg Neutrophils % 36.6 L Lymphocytes % 45.1 H Monocytes % 15.8 H Eosinophils % 1.4 Basophils % 1.1 Absolute Neutrophils 1.4 L Absolute Lymphocytes 1.7 Absolute Monocytes 0.6 Absolute Eosinophils 0.1 Absolute Basophils 0.0 Sodium 138.8 Potassium 4.3 Chloride 100 Carbon Dioxide 29 Anion Gap 10 BUN 19 Creatinine 0.97 Est GFR ( Amer) > 60 Est GFR (Non-Af Amer) 56 L Glucose 98 Calcium 9.6 Total Bilirubin 0.5 AST 21 ALT 30 Alkaline Phosphatase 99 Total Protein 7.2 Albumin 3.9 TSH Urine Color YELLOW Urine Appearance CLEAR Urine pH 6.0 Ur Specific [place] 1.016 Urine Protein NEGATIVE Urine Glucose (UA) NEGATIVE Urine Ketones NEGATIVE Urine Blood NEGATIVE Urine Nitrite NEGATIVE Ur Leukocyte Esterase NEGATIVE Urine WBC (Auto) 0 Urine RBC (Auto) 1 09/27/18 20:00 WBC RBC Hgb Hct MCV MCH MCHC RDW Plt Count Seg Neutrophils % Lymphocytes % Monocytes % Eosinophils % Basophils % Absolute Neutrophils Absolute Lymphocytes Absolute Monocytes Absolute Eosinophils Absolute Basophils Sodium Potassium Chloride Carbon Dioxide Anion Gap BUN Creatinine Est GFR ( Amer) Est GFR (Non-Af Amer) Glucose Calcium Total Bilirubin AST ALT Alkaline Phosphatase Total Protein Albumin TSH 3.00 Urine Color Urine Appearance Urine pH Ur Specific [place] Urine Protein Urine Glucose (UA) Urine Ketones Urine Blood Urine Nitrite Ur Leukocyte Esterase Urine WBC (Auto) Urine RBC (Auto) 09/27/18 20:00 Troponin I < 0.012 Impressions: Head CT 09/27/18 19:06 IMPRESSION: MILD CHRONIC CHANGES OF ATROPHY AND MICROVASCULAR ISCHEMIA. NO ACUTE PROCESS. EVIDENCE OF ACUTE STROKE: NO. Assessment and Plan - Diagnosis (1) Hypertensive urgency Is this a current diagnosis for this admission?: Yes Plan: IV Norvasc, permissive hypertension goal systolic 180 (2) TIA (transient ischemic attack) Is this a current diagnosis for this admission?: Yes Plan: Multiple risks of hypertension, A. fib, diabetes, follow-up MRI, carotid Doppler and 2D echo. CVA care set deployed. (3) Atrial fibrillation Is this a current diagnosis for this admission?: Yes Plan: Rate controlled on Eliquis though given suggestion of acute TIA versus CVA follow-up 2D echo, continue Eliquis (4) Diabetes Is this a current diagnosis for this admission?: Yes Plan: Hold metformin, Humalog sliding scale as needed, follow-up A1c - Time Time Spent with patient: 25-34 minutes - Inpatient Certification Medical Necessity: Need Close Monitoring Due to Risk of Patient Decompensation
[2018-09-28 04:58] LABS: ABSOLUTE LYMPHOCYTES (AUTO) 0.7 10^3/uL (0.5-4.7); ABSOLUTE MONOCYTES (AUTO) 0.4 10^3/uL (0.1-1.4); ABSOLUTE NEUT (AUTO) 3.3 10^3/uL (1.7-8.2); BASOPHILS % (AUTO) 0.8 % (0-2); EOSINOPHILS % (AUTO) 0.3 % (0-6); HEMATOCRIT 40.9 % (36.0-47.0); HEMOGLOBIN 13.7 g/dL (12.0-15.5); LYMPHOCYTES % (AUTO) 16.5 % (13-45); MEAN CORPUSCULAR HEMOGLOBIN 30.8 pg (27.0-33.4); MEAN CORPUSCULAR HGB CONC 33.5 g/dL (32.0-36.0); MEAN CORPUSCULAR VOLUME 92 fl (80-97); MONOCYTES % (AUTO) 8.5 % (3-13); PLATELET COUNT 205 10^3/uL (150-450); RED BLOOD COUNT 4.44 10^6/uL (3.72-5.28); RED CELL DISTRIBUTION WIDTH 14.6 % (11.5-14.0); SEGMENTED NEUTROPHILS % (AUTO) 73.9 % (42-78); TOTAL CELLS COUNTED % (AUTO) 100 %; WHITE BLOOD COUNT 4.5 10^3/uL (4.0-10.5)
[2018-09-28 05:14] LABS: ANION GAP 9 (5-19); BLOOD UREA NITROGEN 14 mg/dL (7-20); CALCIUM 9.5 mg/dL (8.4-10.2); CARBON DIOXIDE 29 mmol/L (22-30); CHLORIDE 99 mmol/L (98-107); CHOLESTEROL 130.36 mg/dL (0-200); GLUCOSE 152 mg/dL (75-110); POTASSIUM 4.6 mmol/L (3.6-5.0); SODIUM 137.4 mmol/L (137-145); TRIGLYCERIDES 43 mg/dL (<150)
[2018-09-28 05:25] LABS: DIRECT LDL 74 mg/dL (<100)
[2018-09-28] MEDS: INSULIN LISPRO 100 UNIT/ML 3 ML VIAL SUBCUT SCH ×3 (07:42→16:58)
[2018-09-28] MEDS ORDERED: METOPROLOL TARTRATE 100 MG TABLET PO SCH (08:00)
--- NOTE | 2018-09-28 11:41 | PDOC PROGRESS REPORT ---
Subjective Progress Note for:: 09/28/18 Subjective:: DEANA ADLE is a 77 year old female with a past medical history of diabetes, hypertension and atrial fibrillation on Eliquis. She presents 30 minutes after the onset of difficulty with word finding, slurred speech, right-sided numbness with a left-sided headache prompting her to seek evaluation in the emergency room where she is found to have hypertensive urgency systolic blood pressure in the 190s. Uncontrolled atrial fibrillation in the 90s. Speech symptoms have subsequently resolved without intervention but 4+ out of 5 right upper extremity weakness persists, initial work-up was unremarkable including CT of the head. She receives aspirin in route, Tylenol and hydralazine and referred to the hospitalist for admission. Patient denies previous episode, recent change in medications and is otherwise felt well. 09/28/2018: Patient is currently asymptomatic. She is neurologically stable. Speech is normal and no focal weakness. Physical Exam Patient is no acute distress Alert oriented to time place person No anxiety or depression Head: atraumatic normocephalic Pupils: are equal reactive Neck: is supple and trachea is central no lymphadenopathy No pharyngeal erythema or exudates Heart: Regular rate and rhythm Lungs: clear no distress Abdomen: nontender nondistended Neurological exam: unremarkable Musculoskeletal: No joint swelling or effusion chronic lower back pain and tenderness No suicidal or homicidal ideation Assessment and Plan - Diagnosis (1) uncontrolled hypertension Is this a current diagnosis for this admission?: Yes Plan: IV Norvasc, permissive hypertension goal systolic 180 09/28/2018: Continue current medications. Monitor blood pressure. (2) TIA (transient ischemic attack) Is this a current diagnosis for this admission?: Yes Plan: Multiple risks of hypertension, A. fib, diabetes, follow-up MRI, carotid Doppler and 2D echo. CVA care set deployed. 09/28/2018: Currently asymptomatic. Follow results of MRI of the brain, carotid ultrasound and echocardiogram. A1c is 5.8. LDL 74. (3) Atrial fibrillation Is this a current diagnosis for this admission?: Yes Plan: Rate controlled on Eliquis though given suggestion of acute TIA versus CVA follow-up 2D echo, continue Eliquis 09/28/2018: A. fib is rate controlled. Continue Xarelto. (4) Diabetes Is this a current diagnosis for this admission?: Yes Plan: Hold metformin, Humalog sliding scale as needed, follow-up A1c 09/28/2018: A1c is 5.8. Continue to hold metformin. Continue sliding scale insulin. Reason For Visit: TIA HTN URGENCY DM Physical Exam Vital Signs: Temp Pulse Resp BP Pulse Ox 98.0 F 87 18 110/62 96 09/28/18 07:28 09/28/18 08:00 09/28/18 08:00 09/28/18 08:00 09/28/18 08:00 Intake & Output 09/27/18 09/28/18 09/29/18 06:59 06:59 06:59 Weight 199 lb 11.821 oz Results Laboratory Results: 09/28/18 04:09 09/28/18 04:09 09/27/18 09/27/18 09/27/18 19:47 20:00 20:00 WBC 3.7 L RBC 4.36 Hgb 13.6 Hct 40.2 MCV 92 MCH 31.1 MCHC 33.7 RDW 14.5 H Plt Count 208 Seg Neutrophils % 36.6 L Lymphocytes % 45.1 H Monocytes % 15.8 H Eosinophils % 1.4 Basophils % 1.1 Absolute Neutrophils 1.4 L Absolute Lymphocytes 1.7 Absolute Monocytes 0.6 Absolute Eosinophils 0.1 Absolute Basophils 0.0 Sodium 138.8 Potassium 4.3 Chloride 100 Carbon Dioxide 29 Anion Gap 10 BUN 19 Creatinine 0.97 Est GFR ( Amer) > 60 Est GFR (Non-Af Amer) 56 L Glucose 98 Calcium 9.6 Total Bilirubin 0.5 AST 21 ALT 30 Alkaline Phosphatase 99 Total Protein 7.2 Albumin 3.9 Triglycerides Cholesterol LDL Cholesterol Direct VLDL Cholesterol HDL Cholesterol TSH Urine Color YELLOW Urine Appearance CLEAR Urine pH 6.0 Ur Specific [place] 1.016 Urine Protein NEGATIVE Urine Glucose (UA) NEGATIVE Urine Ketones NEGATIVE Urine Blood NEGATIVE Urine Nitrite NEGATIVE Ur Leukocyte Esterase NEGATIVE Urine WBC (Auto) 0 Urine RBC (Auto) 1 09/27/18 09/28/18 09/28/18 20:00 04:09 04:09 WBC 4.5 RBC 4.44 Hgb 13.7 Hct 40.9 MCV 92 MCH 30.8 MCHC 33.5 RDW 14.6 H Plt Count 205 Seg Neutrophils % 73.9 Lymphocytes % 16.5 Monocytes % 8.5 Eosinophils % 0.3 Basophils % 0.8 Absolute Neutrophils 3.3 Absolute Lymphocytes 0.7 Absolute Monocytes 0.4 Absolute Eosinophils 0.0 Absolute Basophils 0.0 Sodium 137.4 Potassium 4.6 Chloride 99 Carbon Dioxide 29 Anion Gap 9 BUN 14 Creatinine 0.83 Est GFR ( Amer) > 60 Est GFR (Non-Af Amer) > 60 Glucose 152 H Calcium 9.5 Total Bilirubin AST ALT Alkaline Phosphatase Total Protein Albumin Triglycerides 43 Cholesterol 130.36 LDL Cholesterol Direct 74 VLDL Cholesterol 9.0 L HDL Cholesterol 55 TSH 3.00 Urine Color Urine Appearance Urine pH Ur Specific [place] Urine Protein Urine Glucose (UA) Urine Ketones Urine Blood Urine Nitrite Ur Leukocyte Esterase Urine WBC (Auto) Urine RBC (Auto) 09/27/18 09/28/18 09/28/18 20:00 04:09 10:19 Troponin I < 0.012 < 0.012 < 0.012 Impressions: Head CT 09/27/18 19:06 IMPRESSION: MILD CHRONIC CHANGES OF ATROPHY AND MICROVASCULAR ISCHEMIA. NO ACUTE PROCESS. EVIDENCE OF ACUTE STROKE: NO.
[2018-09-28] MEDS: ASPIRIN 81 MG TABLET, ENT COATED PO SCH (12:22)
[2018-09-28] MEDS: LOSARTAN POTASSIUM 50 MG TABLET PO SCH (12:23)
--- NOTE | 2018-09-28 13:15 | RADIOLOGY REPORT (SQ) ---
EXAM DESCRIPTION: MRI HEAD WITHOUT COMPLETED DATE/TIME: 09/28/2018 12:06 pm REASON FOR STUDY: aphasia, R hemiparesis COMPARISON: None. TECHNIQUE: Multiplanar imaging includes non-contrasted T1, T2, FLAIR, and Diffusion with ADC map seq uences. Images stored on PACS. LIMITATIONS: None. FINDINGS: ANATOMY: No anomalies. Normal vascular flow voids. Pituitary fossa normal. CSF SPACES: Normal in size and contour. No hemorrhage. CEREBRUM: A few high-signal intensity lesions scattered throughout the white matter on FLAIR imaging with distribution suggesting chronic micro-vascular ischemic change. Sulci and gyri normal in size a nd contour. No evidence of hemorrhage, mass or extraaxial fluid collection. POSTERIOR FOSSA: No signal alteration. No hemorrhage. No edema, masses or mass effect. Internal judy tory canals, cerebello-pontine angles, mastoids normal. DIFFUSION: Negative for acute or sub-acute infarction. ORBITS: No masses. Globes normal. PARANASAL SINUSES: No fluid levels. Mucosa normal. OTHER: No other significant finding. IMPRESSION: Chronic ischemic changes. EVIDENCE OF ACUTE STROKE: NO. TECHNICAL DOCUMENTATION: JOB ID: [id number] [employer]- All Rights Reserved Reading location - IP/workstation name: [email or web address]
[2018-09-28] MEDS ORDERED: RIVAROXABAN 10 MG TABLET PO SCH (17:00)
--- NOTE | 2018-09-28 18:24 | XCELERA REPORT ---
[address] [address] Transthoracic Echocardiogram Report Name: DEANA DALE Age: 77 yrs Gender: Female : 1940 Patient Status: Inpatient Patient Location: [address] [place], [place] [address] Study Date: 09/28/2018 03:02 PM Height: 63 in Weight: 204 lb BSA: 2.0 m2 Procedure: A complete two-dimensional transthoracic echocardiogram was performed (2D, M-mode, spectral and color flow Doppler). The study was technically difficult with many images being suboptimal in quality. Reason For Study: afib tia Ordering Physician: TRUDY BARRON Performed By: Chris Howard Interpretation Summary The study was technically difficult with many images being suboptimal in quality. Left ventricular systolic function is normal. There is borderline concentric left ventricular hypertrophy. The left ventricle is grossly normal size. LV diastolic function could not be adequately assessed. Not all wall segments were well visualized. The right ventricle is mildly dilated. The right atrium is mildly dilated. The left atrium is mildly dilated. There is a trace to mild amount of mitral regurgitation There is no mitral valve stenosis. No aortic regurgitation is present. There is no aortic valve stenosis There is a mild amount of tricuspid regurgitation There is mild pulmonary hypertension by echo Right ventricular systolic pressure is estimated to be elevated at 30-40mmHg. There is a mild amount of pulmonic regurgitation The aortic root is not well visualized but is probably normal size. The inferior vena cava was not well visualized There is no pericardial effusion. MMode/2D Measurements & Calculations RVDd: 3.7 cm LVIDd: 4.2 cm FS: 45.7 % Ao root diam: 3.0 cm IVSd: 1.0 cm LVIDs: 2.3 cm EDV(Teich): 76.9 ml Ao root area: 7.3 cm2 LVPWd: 1.1 cm ESV(Teich): 17.3 ml LA dimension: 3.9 cm EF(Teich): 77.5 % LVOT diam: 1.6 cm LVOT area: 2.0 cm2 Doppler Measurements & Calculations MV E max tayler: MV P1/2t max tayler: Ao V2 max: LV V1 max P.0 cm/sec 73.7 cm/sec 90.3 cm/sec 3.0 mmHg MV A max tayler: MV P1/2t: 23.2 msec Ao max PG: LV V1 max: 91.8 cm/sec MVA(P1/2t): 9.5 cm2 3.3 mmHg 86.9 cm/sec MV E/A: 0.46 MV dec slope: MATTHEW(V,D): 1.9 cm2 931.2 cm/sec2 MV dec time: 0.03 sec PA V2 max: PI end-d tayler: TR max tayler: MV P1/2t-pr_phl: 76.0 cm/sec 108.6 cm/sec 266.0 cm/sec 23.2 msec PA max PG: TR max P.3 mmHg 28.3 mmHg Left Ventricle The left ventricle is grossly normal size. There is borderline concentric left ventricular hypertrophy. Left ventricular systolic function is normal. LV diastolic function could not be adequately assessed. Not all wall segments were well visualized. Right Ventricle The right ventricle is mildly dilated. The right ventricular systolic function is borderline reduced. Atria The right atrium is mildly dilated. The left atrium is mildly dilated. Interarterial septum not well visualized and not well dopplered. Cannot comment on ASD/PFO presence. Mitral Valve The mitral valve leaflets are sclerotic, but show no functional abnormalities. There is no mitral valve stenosis. There is a trace to mild amount of mitral regurgitation. Aortic Valve The aortic valve opens well. There is no aortic valve stenosis. No aortic regurgitation is present. Tricuspid Valve The tricuspid valve is not well visualized, but is grossly normal. There is no tricuspid stenosis. There is a mild amount of tricuspid regurgitation. There is mild pulmonary hypertension by echo. Right ventricular systolic pressure is estimated to be elevated at 30-40mmHg. Pulmonic Valve The pulmonic valve is not well visualized. There is a mild amount of pulmonic regurgitation. Great Vessels The aortic root is not well visualized but is probably normal size. The inferior vena cava was not well visualized. Effusions There is no pericardial effusion. : TRUDY BARRON > Devin Lopes
[2018-09-28] MEDS ORDERED: ATORVASTATIN CALCIUM 10 MG TABLET PO SCH (22:00)
[2018-09-29] MEDS ORDERED: METOPROLOL TARTRATE 50 MG TABLET PO SCH (08:00)
[2018-09-29] MEDS: INSULIN LISPRO 100 UNIT/ML 3 ML VIAL SUBCUT SCH (08:10)
--- NOTE | 2018-09-29 09:35 | RADIOLOGY REPORT (SQ) ---
EXAM DESCRIPTION: CAROTID DOPPLER COMPLETED DATE/TIME: 09/28/2018 3:49 pm REASON FOR STUDY: R hemiparesis COMPARISON: None. TECHNIQUE: Grayscale ultrasound, Doppler velocity and spectra, and color Doppler images acquired of the extra-cranial carotid and vertebral arteries. Images stored on PACS. LIMITATIONS: None. FINDINGS: RIGHT CAROTID CCA Velocities: Within normal limits. ICA Velocities Peak systolic 0.49 m/s. End diastolic 0.14 m/s. Proximal ICA/CCA peak systolic ratio 1.7. Spectra normal. No significant plaque. LEFT CAROTID CCA Velocities: Within normal limits. ICA Velocities Peak systolic 0.76 m/s. End diastolic 0.25 m/s. Proximal ICA/CCA peak systolic ratio 1.4. Spectra normal. No significant plaque. VERTEBRAL ARTERIES: Antegrade flow. Normal waveforms. SUBCLAVIAN ARTERIES: Not imaged. OTHER: No other significant finding. IMPRESSION: NO HEMODYNAMICALLY SIGNIFICANT STENOSIS. COMMENT: Quality ID #[id number]: Velocity criteria are extrapolated from the diameter data as defined by t he Society of Radiologists in Ultrasound Consensus Conference. Radiology 2003: 229; 340-346. TECHNICAL DOCUMENTATION: JOB ID: [id number] [employer]- All Rights Reserved Reading location - IP/workstation name: [email or web address]
--- NOTE | 2018-09-29 09:55 | PDOC DISCHARGE SUMMARY ---
General - Admit/Disc Date/PCP Admission Date/Primary Care Provider: 09/27/18 22:11 ORA MICHAEL MD Discharge Date: 09/29/18 - Additional Information Resuscitation Status: Full Code Discharge Diet: As Tolerated, Cardiac, Diabetic Discharge Activity: Activity As Tolerated Home Medications: Amlodipine Besylate [Norvasc] 5 mg PO BID 02/02/14 Docusate Sodium [Colace 100 mg Capsule] 100 mg PO BID 02/02/14 Furosemide [Lasix 40 mg Tablet] 40 mg PO QAM 02/02/14 Metoprolol Tartrate [Lopressor 100 mg Tablet] 100 mg PO QAM 02/02/14 Metoprolol Tartrate [Lopressor 50 mg Tablet] 50 mg PO QHS 02/02/14 Multivitamin [Daily Vitamin] 1 each PO DAILY 02/02/14 Rivaroxaban [Xarelto] 20 mg PO DAILY 02/02/14 Albuterol Sulfate [Ventolin Hfa 8 gm Mdi (1 Mdi/ER Disp)] 2 puff IH Q4HP PRN 09/28/18 Calcium Carbonate/Vitamin D3 [Calcium 500 + Vit D Caplet] 1 each PO BID 09/28/18 Cholecalciferol (Vitamin D3) [Vitamin D3 1000 Unit Tablet] 1,000 unit PO DAILY 0 09/28/18 Fluticasone/Salmeterol [Advair 250-50 Diskus 14 Dose/Diskus] 1 inh IH Q12H 09/28/18 Levothyroxine Sodium [Synthroid] 125 mcg PO DAILY 09/28/18 Metformin HCl [Metformin HCl ER] 500 mg PO DAILY 09/28/18 Rosuvastatin Calcium [Crestor 20 mg Tablet] 20 mg PO QHS 09/28/18 Telmisartan [Micardis 20 mg Tablet] 20 mg PO DAILY 09/28/18 Tiotropium Cement [Spiriva Handihaler 5 Cap/Kit (18 Mcg/Cap)] 1 cap IH DAILY 09/28/18 Tramadol HCl [Ultram 50 mg Tablet] 50 mg PO Q8HP PRN 09/28/18 Vitamin E 400 unit PO DAILY 09/28/18 Aspirin [Ecotrin 81 mg EC Tablet] 81 mg PO DAILY tabec 09/29/18 History of Present Illness History of Present Illness: DEANA DALE is a 77 year old female Hospital Course Hospital Course: DEANA DALE is a 77 year old female with a past medical history of diabetes, hypertension and atrial fibrillation on Eliquis. She presents 30 minutes after the onset of difficulty with word finding, slurred speech, right-sided numbness with a left-sided headache prompting her to seek evaluation in the emergency room where she is found to have hypertensive urgency systolic blood pressure in the 190s. Uncontrolled atrial fibrillation in the 90s. Speech symptoms have subsequently resolved without intervention but 4+ out of 5 right upper extremity weakness persists, initial work-up was unremarkable including CT of the head. She receives aspirin in route, Tylenol and hydralazine and referred to the hospitalist for admission. Patient denies previous episode, recent change in medications and is otherwise felt well. 09/28/2018: Patient is currently asymptomatic. She is neurologically stable. Speech is normal and no focal weakness. Physical Exam Patient is no acute distress Alert oriented to time place person No anxiety or depression Head: atraumatic normocephalic Pupils: are equal reactive Neck: is supple and trachea is central no lymphadenopathy No pharyngeal erythema or exudates Heart: Regular rate and rhythm Lungs: clear no distress Abdomen: nontender nondistended Neurological exam: unremarkable Musculoskeletal: No joint swelling or effusion chronic lower back pain and tenderness No suicidal or homicidal ideation Assessment and Plan - Diagnosis (1) uncontrolled hypertension Is this a current diagnosis for this admission?: Yes Plan: IV Norvasc, permissive hypertension goal systolic 180 09/28/2018: Continue current medications. Monitor blood pressure. (2) TIA (transient ischemic attack) Is this a current diagnosis for this admission?: Yes Plan: Multiple risks of hypertension, A. fib, diabetes, follow-up MRI, carotid Doppler and 2D echo. CVA care set deployed. 09/28/2018: Currently asymptomatic. Follow results of MRI of the brain, carotid ultrasound and echocardiogram. A1c is 5.8. LDL 74. (3) Atrial fibrillation Is this a current diagnosis for this admission?: Yes Plan: Rate controlled on Eliquis though given suggestion of acute TIA versus CVA follow-up 2D echo, continue Eliquis 09/28/2018: A. fib is rate controlled. Continue Xarelto. (4) Diabetes Is this a current diagnosis for this admission?: Yes Plan: Hold metformin, Humalog sliding scale as needed, follow-up A1c 09/28/2018: A1c is 5.8. Continue to hold metformin. Continue sliding scale insulin. Echocardiogram shows normal left ventricular systolic function. There was no aortic stenosis. Carotid ultrasound showed no hemodynamically significant stenosis. MRI of the brain showed no evidence of acute stroke. Patient is currently completely asymptomatic. Okay for discharge. Start aspirin 81 mg daily. Follow-up with PCP and possibly neurology outpatient. Physical Exam Vital Signs: Temp Pulse Resp BP Pulse Ox 97.8 F 76 16 114/70 98 09/29/18 07:13 09/29/18 08:00 09/29/18 08:00 09/29/18 08:00 09/29/18 08:00 Intake & Output 09/28/18 09/29/18 09/30/18 06:59 06:59 06:59 Intake Total 838 Balance 838 Weight 199 lb 11.821 oz 202 lb 13.204 oz Results Laboratory Results: 09/28/18 04:09 09/28/18 04:09 09/27/18 09/28/18 09/28/18 20:00 04:09 10:19 Troponin I < 0.012 < 0.012 < 0.012 Impressions: Head CT 09/27/18 19:06 IMPRESSION: MILD CHRONIC CHANGES OF ATROPHY AND MICROVASCULAR ISCHEMIA. NO ACUTE PROCESS. EVIDENCE OF ACUTE STROKE: NO. Carotid Doppler Study 09/28/18 00:00 IMPRESSION: NO HEMODYNAMICALLY SIGNIFICANT STENOSIS. Head MRI 09/28/18 00:00 IMPRESSION: Chronic ischemic changes. EVIDENCE OF ACUTE STROKE: NO. Qualifiers - * PATIENT BEING DISCHARGED WITH ANY OF THE FOLLOWING DIAGNOSIS: No Acute Heart Failure Is this a Heart Failure Patient?: No
[2018-09-29] MEDS: AMLODIPINE BESYLATE 5 MG TABLET PO SCH (10:20)
[2018-09-29] MEDS: DOCUSATE SODIUM 100 MG CAPSULE PO SCH (10:20)
[2018-09-29] MEDS: LOSARTAN POTASSIUM 50 MG TABLET PO SCH (10:21)
[2018-09-29] MEDS: ASPIRIN 81 MG TABLET, ENT COATED PO SCH (10:21)
[2018-09-29 10:46] VITALS: BP 106/70
== END 2018-09-29 11:27 | disposition home or self-care (01) ==
LOC: ER 18:54 → EH 22:11 → 3N 09-28 01:00
PROVIDERS: ADMIT Internal Medicine; ATTEND Internal Medicine
DX: G45.9 Transient cerebral ischemic attack, unspecified (principal); I16.0 Hypertensive urgency; E11.9 Type 2 diabetes mellitus without complications; I48.91 Unspecified atrial fibrillation; J44.9 Chronic obstructive pulmonary disease, unspecified; E78.5 Hyperlipidemia, unspecified; M62.81 Muscle weakness (generalized); Z79.899 Other long term (current) drug therapy; Z79.02 Long term (current) use of antithrombotics/antiplatelets; Z87.891 Personal history of nicotine dependence; Z79.84 Long term (current) use of oral hypoglycemic drugs; Z82.49 Family history of ischemic heart disease and other diseases of the circulatory system
CPT/HCPCS: 36415; 70450; 70551; 80048; 80053; 80061; 81001; 82962; 83036; 84443; 84484; 85025; 85610; 85652; 85730; 93005; 93010; 93306; 93880; 96374; 99285; G0378; J0360; J3490

== ENCOUNTER → 2018-10-15 | Outpatient (CLI) | payer MEDICARE, OTHER ==
--- NOTE | 2018-10-17 15:30 | XCELERA REPORT ---
[address] [address] Lower Extremity Arterial Evaluation Name: DEANA DALE Age: 77 yrs Gender: Female : 1940 Patient Status: Outpatient Patient Location: [facility] Study Date: 10/15/2018 01:15 PM Procedure: A color flow and duplex scan of the lower extremity arteries was performed bilaterally with velocity and waveform anaylsis. Ankle brachial indicies performed. 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 Normal velocity and triphasic waveforms noted in the Common Femoral artery. Biphasic with low normal velocity in the infrageniculate arteries. Ankle Brachial index 1.14. Left Side Arterial Evaluation Vessel wall calcification on morris scale imaging. Normal velocity and triphasic waveforms noted in the Common Femoral artery. Monophasic with low velocity, moderate broadening from distal Femoral to the infrageniculate arteries. Ankle Brachial index 0.71. Interpretation Summary Mild hemodynamically significant lesions in the right lower extremity only, on duplex imaging, at rest. Severe hemodynamically significant lesions in the left lower extremity only, on duplex imaging, at rest. Duplex imaging significant for vessel wall calcification, Femoral disease bilaterally implied, no focal on right, on left, probable short segment Femoral stenosis with reconstitution. REZA's are normal on right, moderate obstriction on left predicted. : ORA MICHAEL > Braden Alonso
== END ==
LOC: SP 12:51
PROVIDERS: ATTEND Family Medicine
DX: I70.213 Atherosclerosis of native arteries of extremities with intermittent claudication, bilateral legs (principal)
CPT/HCPCS: 93925

== ENCOUNTER 2018-10-25 08:55 | Emergency (ER) | payer MEDICARE, OTHER ==
[2018-10-25] MEDS ORDERED: ACETAMINOPHEN 325 MG TABLET PO ONE (09:43)
--- NOTE | 2018-10-25 09:47 | ER Document Report ---
ED Medical Screen (RME) - General Chief Complaint: Shortness Of Breath Stated Complaint: SHORTNESS OF BREATH Time Seen by Provider: 10/25/18 09:33 Primary Care Provider: ORA MICHAEL MD [Primary Care Provider] - Follow up as needed Notes: Patient is a 78-year-old female with a history of A. fib, COPD, hypertension, TIA, diabetes who presents to the emergency department with a chief complaint of elevated blood pressure and chest pain. States she woke up around 7 AM this morning having some shortness of breath. Patient did take her Spiriva and albuterol without much help. Patient states she also feels like she has a lot of mucus in her throat. Patient denies trouble swallowing. Patient states that when she woke up this morning she did have some chest pressure and tightness. Patient states that while waiting in the emergency department lobby she has developed a small right frontal headache. Patient denies numbness or tingling in upper or lower extremities. Patient does take multiple blood pressure me dications but did not take them this morning as she wanted to go to the hospital to get checked out. Patient states she did take her blood pressure this morning at home and reports that it was 180s over 110. Patient denies visual disturbance or a feeling of off balance. TRAVEL OUTSIDE OF THE [place] IN LAST 30 DAYS: No - Related Data Allergies/Adverse Reactions: sulfamethoxazole [From Septra DS] Allergy (Verified 10/25/18 08:58) trimethoprim [From Septra DS] Allergy (Verified 10/25/18 08:58) Past Medical History - Social History Chew tobacco use (# tins/day): No Frequency of alcohol use: None Drug Abuse: Bath salts - Past Medical History Cardiac Medical History: Reports: Hx Atrial Fibrillation, Hx Hypercholesterolemia, Hx Hypertension Pulmonary Medical History: Reports: Hx COPD Endocrine Medical History: Reports: Hx Diabetes Mellitus Type 2 Renal/ Medical History: Denies: Hx Peritoneal Dialysis Past Surgical History: Reports: Hx Hysterectomy, Hx Tonsillectomy - Immunizations Hx Diphtheria, Pertussis, Tetanus Vaccination: No Physical Exam - Vital signs Vitals: Temp Pulse Resp BP Pulse Ox 97.6 F 76 18 172/105 H 98 10/25/18 09:02 10/25/18 09:02 10/25/18 09:02 10/25/18 09:02 10/25/18 09:02 - Neurological Notes: Face symmetric. Tongue protrudes midline. Extraocular motions intact. Pupils are 3 mm and equally reactive. Normal speech, normal gait. 5 out of 5 strength in both the distal and proximal upper and lower extremities bilaterally. Sensation is grossly intact throughout. Finger to nose testing normal. Pronator drift normal. Course - Re-evaluation Re-evalutation: 10/25/18 09:46 I have greeted and performed a rapid initial assessment of this patient. A comprehensive ED assessment and evaluation of the patient, analysis of test results and completion of the medical decision making process will be conducted by additional ED providers. - Vital Signs Vital signs: Temp Pulse Resp BP Pulse Ox 97.6 F 76 18 172/105 H 98 10/25/18 09:02 10/25/18 09:02 10/25/18 09:02 10/25/18 09:02 10/25/18 09:02 Doctor's Discharge - Discharge Referrals: ORA MICHAEL MD [Primary Care Provider] - Follow up as needed
--- NOTE | 2018-10-25 10:19 | RADIOLOGY REPORT (SQ) ---
EXAM DESCRIPTION: CHEST 2 VIEWS COMPLETED DATE/TIME: 10/25/2018 10:03 am REASON FOR STUDY: chest tightness COMPARISON: 02/02/2014 EXAM PARAMETERS: NUMBER OF VIEWS: two views TECHNIQUE: Digital Frontal and Lateral radiographic views of the chest acquired. RADIATION DOSE: NA LIMITATIONS: none FINDINGS: LUNGS AND PLEURA: No opacities, masses or pneumothorax. No pleural effusion. MEDIASTINUM AND HILAR STRUCTURES: No masses or contour abnormalities. HEART AND VASCULAR STRUCTURES: Heart size is borderline. No pulmonary edema. BONES: No acute findings. HARDWARE: None in the chest. OTHER: No other significant finding. IMPRESSION: Borderline cardiomegaly with no pulmonary edema. TECHNICAL DOCUMENTATION: JOB ID: [id number] [employer]- All Rights Reserved Reading location - IP/workstation name: [email or web address]
[2018-10-25] MEDS ORDERED: IPRATROPIUM/ALBUTEROL 0.5-2.5 MG/3 ML AMPUL NEB ONE (10:20)
[2018-10-25] MEDS ORDERED: PREDNISONE 20 MG TABLET PO ONE (10:21)
[2018-10-25] MEDS ORDERED: METOPROLOL TARTRATE 100 MG TABLET PO ONE (10:22)
--- NOTE | 2018-10-25 10:26 | ER Document Report ---
ED General - General Chief Complaint: Shortness Of Breath Stated Complaint: SHORTNESS OF BREATH Time Seen by Provider: 10/25/18 09:33 Primary Care Provider: ORA MICHAEL MD [Primary Care Provider] - Follow up as needed Mode of Arrival: Ambulatory Information source: Patient, [facility] Records Notes: 78-year-old female with COPD, atrial fibrillation, hyperlipidemia, type 2 d xena presents with complaint of dyspnea, chest tightness, mucus in her throat and a nonproductive cough that started this morning upon awakening. Patient describes her chest discomfort as tightness which was not relieved with her Spiriva and albuterol. Patient also states that she has had mucus in her throat and feels like she is unable to cough it up. She denies any difficulty swallowing, sore throat, ear pain, fever, chills. Patient states that she was hospitalized for a TIA approximately 1 month ago. She states this morning she did feel weak but denies any visual changes, slurred speech, focal weakness, difficulty ambulating. She states last time she presented with TIA symptoms she was a phasic. She concern about her elevated blood pressure but she has not taken her blood pressure medication yet today. Patient also complaining of a mild frontal headache that started this morning. TRAVEL OUTSIDE OF THE [place] IN LAST 30 DAYS: No - HPI Onset: This morning Onset/Duration: Gradual, Persistent Quality of pain: Achy Severity: Mild Associated symptoms: Nonproductive cough, Headache, Sinus pain/drainage, Shortness of breath, Other - Chest tightness. denies: Body/muscle aches, Chest pain, Diarrhea, Earache, Fever, Hurts to breath, Nausea, Vomiting, Sore throat Exacerbated by: Movement, Walking, Coughing Relieved by: Remaining still Similar symptoms previously: Yes Recently seen / treated by doctor: No - Related Data Allergies/Adverse Reactions: sulfamethoxazole [From Septra DS] Allergy (Verified 10/25/18 08:58) trimethoprim [From Septra DS] Allergy (Verified 10/25/18 08:58) Past Medical History - General Information source: Patient - Social History Smoking Status: Never Smoker Chew tobacco use (# tins/day): No Frequency of alcohol use: None Drug Abuse: Bath salts Lives with: Alone Family History: Reviewed & Not Pertinent, Hypertension Patient has suicidal ideation: No Patient has homicidal ideation: No - Past Medical History Cardiac Medical History: Reports: Hx Atrial Fibrillation, Hx Hypercholesterolemia, Hx Hypertension Pulmonary Medical History: Reports: Hx COPD Endocrine Medical History: Reports: Hx Diabetes Mellitus Type 2 Renal/ Medical History: Denies: Hx Peritoneal Dialysis Past Surgical History: Reports: Hx Hysterectomy, Hx Tonsillectomy - Immunizations Hx Diphtheria, Pertussis, Tetanus Vaccination: No Review of Systems - Review of Systems Constitutional: Malaise EENT: denies: Difficulty swallowing Cardiovascular: Dyspnea. denies: Palpitations, Dizziness, Lightheaded Respiratory: Cough, Short of breath, Sputum. denies: Wheezing Gastrointestinal: denies: Abdominal pain, Diarrhea, Nausea, Vomiting Genitourinary: denies: Dysuria Female Genitourinary: No symptoms reported Musculoskeletal: denies: Back pain Skin: denies: Rash Hematologic/Lymphatic: No symptoms reported Neurological/Psychological: Headaches. denies: Dementia, Depression, Anxiety, Weakness, Gait changes, Loss of power, Speech impairment, Numbness -: Yes All other systems reviewed and negative Physical Exam - Vital signs Vitals: Temp Pulse Resp BP Pulse Ox 97.6 F 76 18 172/105 H 98 10/25/18 09:02 10/25/18 09:02 10/25/18 09:02 10/25/18 09:02 10/25/18 09:02 - Notes Notes: PHYSICAL EXAMINATION: GENERAL: Well-appearing, well-nourished and in no acute distress. HEAD: Atraumatic, normocephalic. EYES: Pupils equal round and reactive to light, extraocular movements intact, conjunctiva are normal. ENT: Nares patent, oropharynx clear without exudates. Moist mucous membranes. NECK: Normal range of motion, supple without lymphadenopathy LUNGS: Breath sounds clear to auscultation bilaterally and equal. No wheezes ra les or rhonchi. HEART: Regular rate and rhythm without murmurs ABDOMEN: Soft, nontender, nondistended abdomen. No guarding, no rebound. No masses appreciated. Female : deferred Musculoskeletal: Normal range of motion, no pitting or edema. No cyanosis. NEUROLOGICAL: Cranial nerves grossly intact. Normal speech, normal gait. Normal sensory, motor exams PSYCH: Normal mood, normal affect. SKIN: Warm, Dry, normal turgor, no rashes or lesions noted. Course - Re-evaluation Re-evalutation: 10/25/18 12:08 Laboratory 10/25/18 10/25/18 10/25/18 09:47 10:36 10:36 WBC 4.3 RBC 4.56 Hgb 14.3 Hct 42.2 MCV 93 MCH 31.4 MCHC 33.9 RDW 14.3 H Plt Count 196 Seg Neutrophils % 68.0 Lymphocytes % 20.4 Monocytes % 9.6 Eosinophils % 1.1 Basophils % 0.9 Absolute Neutrophils 2.9 Absolute Lymphocytes 0.9 Absolute Monocytes 0.4 Absolute Eosinophils 0.0 Absolute Basophils 0.0 Sodium 141.2 Potassium 4.4 Chloride 105 Carbon Dioxide 27 Anion Gap 9 BUN 22 H Creatinine 0.92 Est GFR ( Amer) > 60 Est GFR (Non-Af Amer) 59 L Glucose 112 H Calcium 9.4 Magnesium 1.8 Total Bilirubin 0.7 Direct Bilirubin 0.3 Neonat Total Bilirubin Not Reportable Neonat Direct Bilirubin Not Reportable Neonat Indirect Bili Not Reportable AST 23 ALT 29 Alkaline Phosphatase 79 Troponin I NT-Pro-B Natriuret Pep Total Protein 7.3 Albumin 4.1 Urine Color YELLOW Urine Appearance SLIGHTLY-CLOUDY Urine pH 6.0 Ur Specific [place] 1.025 Urine Protein NEGATIVE Urine Glucose (UA) NEGATIVE Urine Ketones NEGATIVE Urine Blood NEGATIVE Urine Nitrite NEGATIVE Urine Bilirubin NEGATIVE Urine Urobilinogen NEGATIVE Ur Leukocyte Esterase TRACE H Urine WBC (Auto) 7 Urine RBC (Auto) 2 Urine Bacteria (Auto) 1+ Squamous Epi Cells Auto 4 Urine Mucus (Auto) OCC Urine Ascorbic Acid 40 H 10/25/18 10:36 WBC RBC Hgb Hct MCV MCH MCHC RDW Plt Count Seg Neutrophils % Lymphocytes % Monocytes % Eosinophils % Basophils % Absolute Neutrophils Absolute Lymphocytes Absolute Monocytes Absolute Eosinophils Absolute Basophils Sodium Potassium Chloride Carbon Dioxide Anion Gap BUN Creatinine Est GFR ( Amer) Est GFR (Non-Af Amer) Glucose Calcium Magnesium Total Bilirubin Direct Bilirubin Neonat Total Bilirubin Neonat Direct Bilirubin Neonat Indirect Bili AST ALT Alkaline Phosphatase Troponin I < 0.012 NT-Pro-B Natriuret Pep 752 H Total Protein Albumin Urine Color Urine Appearance Urine pH Ur Specific [place] Urine Protein Urine Glucose (UA) Urine Ketones Urine Blood Urine Nitrite Urine Bilirubin Urine Urobilinogen Ur Leukocyte Esterase Urine WBC (Auto) Urine RBC (Auto) Urine Bacteria (Auto) Squamous Epi Cells Auto Urine Mucus (Auto) Urine Ascorbic Acid Chest X-Ray 10/25/18 09:42 IMPRESSION: Borderline cardiomegaly with no pulmonary edema. Temp Pulse Resp BP Pulse Ox 97.6 F 76 12 153/70 H 93 10/25/18 09:02 10/25/18 09:02 10/25/18 11:01 10/25/18 11:01 10/25/18 11:01 10/25/18 17:39 Patient presents with a mild exacerbation of their baseline COPD. Mild wheezing at time of presentation but vitals do not show significant hypoxemia or tachypnea. No retractions. Patient did clinically improve after receiving nebulizers here in the emergency department. Chest x-ray without evidence of an acute pneumonia. Laboratories do not show acute kidney injury or significant leukocytosis. Patient able to ambulate without any respiratory distress. Based on patient's overall reassuring assessment, I believe they are stable for outpatient management with steroids. Patient has 3 inhalers at home at home. I do not suspect an acute alternative pathology at this time based on history and exam including acute pulmonary embolus, ACS, pneumothorax, or aortic dissection. At this time will discharge with return precautions and follow-up recommendations. Verbal discharge instructions given a the bedside and opportunity for questions given. Medication warnings reviewed. Patient is in agreement with this plan and has verbalized understanding of return precautions and the need for primary care follow-up in the next 24-72 hours. 10/25/18 17:40 Patient was evaluated and treated as appropriate for the patient's presenting symptoms and complaint, with consideration of any critical or life threatening conditions that may be associated with their obtained history and exam as noted above. All results were discussed with patient. Patient provided the opportunity to ask questions, and express concerns. Patient was educated on treatments based on their presumed diagnosis as noted above. At this time we will discharge the patient with return precautions and follow-up recommendations. Verbal discharge instructions given a the bedside. Medication warnings reviewed. Patient is in agreement with this plan and has verbalized understanding of return precautions. After careful consideration I feel that that patient can be safely discharged from the emergency department, they were advised to followup with a primary care physician in 2-3 days. Dictation on this chart was performed using voice recognition software and may result in unintended grammatical, spelling, syntax or errors. - Vital Signs Vital signs: Temp Pulse Resp BP Pulse Ox 97.6 F 76 12 153/70 H 93 10/25/18 09:02 10/25/18 09:02 10/25/18 11:01 10/25/18 11:01 10/25/18 11:01 - Laboratory Result Diagrams: 10/25/18 10:36 10/25/18 10:36 Laboratory results interpreted by me: 10/25/18 10/25/18 10/25/18 09:47 10:36 10:36 RDW 14.3 H BUN 22 H Est GFR (Non-Af Amer) 59 L Glucose 112 H NT-Pro-B Natriuret Pep Ur Leukocyte Esterase TRACE H Urine Ascorbic Acid 40 H 10/25/18 10:36 RDW BUN Est GFR (Non-Af Amer) Glucose NT-Pro-B Natriuret Pep 752 H Ur Leukocyte Esterase Urine Ascorbic Acid - Diagnostic Test Radiology reviewed: Image reviewed, Reports reviewed - EKG Interpretation by Me Rate: Normal Rhythm: A.Fib When compared to previous EKG there are: No significant change Discharge - Discharge Clinical Impression: COPD exacerbation Atrial fibrillation Qualifiers: Atrial fibrillation type: chronic Qualified Code(s): I48.2 - Chronic atrial fibrillation Hypertension Qualifiers: Hypertension type: unspecified Qualified Code(s): I10 - Essential (primary) hypertension Dyspnea Qualifiers: Dyspnea type: unspecified Qualified Code(s): R06.00 - Dyspnea, unspecified Condition: Good Disposition: HOME, SELF-CARE Instructions: Chronic Obstructive Lung Disease ([facility]), Dyspnea, Nonspecific ([facility]) Prescriptions: Prednisone [Deltasone 20 mg Tablet] 2 tab PO DAILY 3 Days #6 tablet Referrals: ORA MICHAEL MD [Primary Care Provider] - Follow up as needed
[2018-10-25] MEDS ORDERED: NORMAL SALINE 500 ML IV ONE (10:28)
[2018-10-25 10:33] LABS: APPEARANCE,URINE SLIGHTLY-CLOUDY; BILIRUBIN,URINE NEGATIVE (NEGATIVE); COLOR,URINE YELLOW; GLUCOSE, URINE NEGATIVE (NEGATIVE); KETONES,URINE NEGATIVE (NEGATIVE); LEUKOCYTE ESTERASE,URINE TRACE (NEGATIVE); NITRITE,URINE NEGATIVE (NEGATIVE); PROTEIN,URINE NEGATIVE (NEGATIVE); URINE SPECIFIC GRAVITY 1.025; UROBILINOGEN,URINE NEGATIVE mg/dL (<2.0)
[2018-10-25 10:47] LABS: ABSOLUTE LYMPHOCYTES (AUTO) 0.9 10^3/uL (0.5-4.7); ABSOLUTE MONOCYTES (AUTO) 0.4 10^3/uL (0.1-1.4); ABSOLUTE NEUT (AUTO) 2.9 10^3/uL (1.7-8.2); BASOPHILS % (AUTO) 0.9 % (0-2); EOSINOPHILS % (AUTO) 1.1 % (0-6); HEMATOCRIT 42.2 % (36.0-47.0); HEMOGLOBIN 14.3 g/dL (12.0-15.5); LYMPHOCYTES % (AUTO) 20.4 % (13-45); MEAN CORPUSCULAR HEMOGLOBIN 31.4 pg (27.0-33.4); MEAN CORPUSCULAR HGB CONC 33.9 g/dL (32.0-36.0); MEAN CORPUSCULAR VOLUME 93 fl (80-97); MONOCYTES % (AUTO) 9.6 % (3-13); PLATELET COUNT 196 10^3/uL (150-450); RED BLOOD COUNT 4.56 10^6/uL (3.72-5.28); RED CELL DISTRIBUTION WIDTH 14.3 % (11.5-14.0); TOTAL CELLS COUNTED % (AUTO) 100 %; WHITE BLOOD COUNT 4.3 10^3/uL (4.0-10.5)
[2018-10-25 11:12] LABS: ALANINE AMINOTRANSFERASE 29 U/L (9-52); ALBUMIN 4.1 g/dL (3.5-5.0); ALKALINE PHOSPHATASE 79 U/L (38-126); ANION GAP 9 (5-19); ASPARTATE AMINO TRANSFERASE 23 U/L (14-36); BILIRUBIN,DIRECT 0.3 mg/dL (0.0-0.4); BILIRUBIN,TOTAL 0.7 mg/dL (0.2-1.3); BLOOD UREA NITROGEN 22 mg/dL (7-20); CALCIUM 9.4 mg/dL (8.4-10.2); CARBON DIOXIDE 27 mmol/L (22-30); CHLORIDE 105 mmol/L (98-107); GLUCOSE 112 mg/dL (75-110); POTASSIUM 4.4 mmol/L (3.6-5.0); SODIUM 141.2 mmol/L (137-145); TOTAL PROTEIN 7.3 g/dL (6.3-8.2)
[2018-10-25 11:21] LABS: NT PRO BNP 752 pg/mL (<450)
[2018-10-25 11:23] VITALS: BP 153/70
[2018-10-25 11:29] LABS: TROPONIN I < 0.012 ng/mL
[2018-10-25] MEDS ORDERED: ALBUTEROL SULFATE HFA (90 MCG/PUFF) 8 GM MDI (1 MDI/ER DISP) IH PRN (12:07)
--- NOTE | 2018-10-25 19:13 | EKG REPORT ---
SEVERITY:- ABNORMAL ECG - ATRIAL FIBRILLATION BORDERLINE T ABNORMALITIES, INFERIOR LEADS : Confirmed by: Sabrina Naranjo MD 25-Oct-2018 19:12:51
== END 2018-10-25 12:20 | disposition home or self-care (01) ==
LOC: ER 08:55
DX: J44.1 Chronic obstructive pulmonary disease with (acute) exacerbation (principal); R06.02 Shortness of breath; I48.2 Chronic atrial fibrillation; I10 Essential (primary) hypertension; R07.89 Other chest pain; R05 Cough; J34.89 Other specified disorders of nose and nasal sinuses; R51 Headache; E11.9 Type 2 diabetes mellitus without complications; Z79.899 Other long term (current) drug therapy; Z88.1 Allergy status to other antibiotic agents
CPT/HCPCS: 94640; 99285; 36415; 83735; 85025; 80053; 81001; 84484; 83880; 71046; 93005; 93010; A9270 ×4; J7040; J3490; J7512; J7620

== ENCOUNTER → 2019-01-13 | Outpatient (CLI) | payer MEDICARE, OTHER ==
[2019-01-13 09:24] LABS: ABSOLUTE EOSINOPHILS # (AUTO) 0.1 10^3/uL (0.0-0.6); ABSOLUTE LYMPHOCYTES (AUTO) 1.2 10^3/uL (0.5-4.7); ABSOLUTE MONOCYTES (AUTO) 0.5 10^3/uL (0.1-1.4); ABSOLUTE NEUT (AUTO) 1.4 10^3/uL (1.7-8.2); BASOPHILS % (AUTO) 1.1 % (0-2); HEMATOCRIT 35.9 % (36.0-47.0); HEMOGLOBIN 12.1 g/dL (12.0-15.5); LYMPHOCYTES % (AUTO) 37.8 % (13-45); MEAN CORPUSCULAR HEMOGLOBIN 31.3 pg (27.0-33.4); MEAN CORPUSCULAR HGB CONC 33.7 g/dL (32.0-36.0); MEAN CORPUSCULAR VOLUME 93 fl (80-97); MONOCYTES % (AUTO) 15.4 % (3-13); PLATELET COUNT 200 10^3/uL (150-450); RED BLOOD COUNT 3.87 10^6/uL (3.72-5.28); SEGMENTED NEUTROPHILS % (AUTO) 42.7 % (42-78); TOTAL CELLS COUNTED % (AUTO) 100 %; WHITE BLOOD COUNT 3.3 10^3/uL (4.0-10.5)
[2019-01-13 09:46] LABS: ALBUMIN 3.8 g/dL (3.5-5.0); ALKALINE PHOSPHATASE 77 U/L (38-126); ANION GAP 8 (5-19); ASPARTATE AMINO TRANSFERASE 19 U/L (14-36); BILIRUBIN,DIRECT 0.3 mg/dL (0.0-0.4); BILIRUBIN,TOTAL 0.4 mg/dL (0.2-1.3); BLOOD UREA NITROGEN 16 mg/dL (7-20); CALCIUM 9.4 mg/dL (8.4-10.2); CARBON DIOXIDE 27 mmol/L (22-30); CHLORIDE 103 mmol/L (98-107); CHOLESTEROL 107.13 mg/dL (0-200); CREATINE KINASE 65 U/L (30-135); GLUCOSE 117 mg/dL (75-110); POTASSIUM 4.3 mmol/L (3.6-5.0); TOTAL PROTEIN 6.7 g/dL (6.3-8.2); TRIGLYCERIDES 41 mg/dL (<150)
[2019-01-13 09:54] LABS: FREE T3 2.75 pg/mL (2.77-5.27); FREE T4 (FREE THYROXINE) 1.67 ng/dL (0.78-2.19)
[2019-01-13 09:57] LABS: DIRECT LDL 63 mg/dL (<100)
[2019-01-13 10:07] LABS: THYROID STIMULATING HORMONE 0.25 uIU/mL (0.47-4.68)
[2019-01-14 16:50] LABS: IRON(TIBC) 59.1 ug/dL (37-170)
== END ==
LOC: OD 08:34
PROVIDERS: ATTEND Family Medicine
DX: E89.0 Postprocedural hypothyroidism (principal); E11.9 Type 2 diabetes mellitus without complications; E78.5 Hyperlipidemia, unspecified
CPT/HCPCS: 36415; 80053; 80061; 82550; 82607; 82728; 83036; 83540; 83550; 84439; 84443; 84481; 85025

== ENCOUNTER 2019-02-14 16:07 | Inpatient (IN) | payer MEDICARE, OTHER ==
[2019-02-14] MEDS ORDERED: ONDANSETRON HCL INJ/PF 4 MG/2 ML SDV IV ONE (16:13)
--- NOTE | 2019-02-14 16:13 | ER Document Report ---
ED Medical Screen (RME) - General Chief Complaint: Bloody Stools Stated Complaint: BLOOD IN STOOL Time Seen by Provider: 02/14/19 16:12 Primary Care Provider: ORA MICHAEL MD [Primary Care Provider] - Follow up as needed TRAVEL OUTSIDE OF THE [place] IN LAST 30 DAYS: No - HPI Notes: 02/14/19 16:12 Patient is a 78-year-old female with a history of COPD, atrial fibrillation (on Xarelto), hyperlipidemia, type 2 diabetes who presents complaining of black stool for the past 3 days. Patient states that she will have a little abdominal upset, but no significant pain. She has had some nausea without vomiting. No fever. She is urinating relatively normal, but did have some increased frequency over the past couple days. I have treated and performed a rapid initial assessment of this patient. A comprehensive ED assessment and evaluation of the patient, analysis of test results and completion of medical decision making process will be conducted by additional ED providers. PHYSICAL EXAMINATION: GENERAL: Well-appearing, well-nourished and in no acute distress. Answers questions appropriately. - Related Data Allergies/Adverse Reactions: sulfamethoxazole [From Septra DS] Allergy (Verified 10/25/18 08:58) trimethoprim [From Septra DS] Allergy (Verified 10/25/18 08:58) Past Medical History - Past Medical History Cardiac Medical History: Reports: Hx Atrial Fibrillation, Hx Hypercholesterolemia, Hx Hypertension Pulmonary Medical History: Reports: Hx COPD Endocrine Medical History: Reports: Hx Diabetes Mellitus Type 2 Renal/ Medical History: Denies: Hx Peritoneal Dialysis Past Surgical History: Reports: Hx Hysterectomy, Hx Tonsillectomy - Immunizations Hx Diphtheria, Pertussis, Tetanus Vaccination: No Physical Exam - Vital signs Vitals: Temp Pulse Resp BP Pulse Ox 97.7 F 67 18 171/95 H 99 02/14/19 16:11 02/14/19 16:11 02/14/19 16:11 02/14/19 16:11 02/14/19 16:11 Course - Vital Signs Vital signs: Temp Pulse Resp BP Pulse Ox 97.7 F 67 18 171/95 H 99 02/14/19 16:11 02/14/19 16:11 02/14/19 16:11 02/14/19 16:11 02/14/19 16:11 Doctor's Discharge - Discharge Referrals: ORA MICHAEL MD [Primary Care Provider] - Follow up as needed
--- NOTE | 2019-02-14 17:01 | ER Document Report ---
ED GI Bleed / Rectal Pain - General Chief Complaint: Black/Tarry Stools Stated Complaint: BLOOD IN STOOL Time Seen by Provider: 02/14/19 16:12 Mode of Arrival: Ambulatory Information source: Patient Notes: Patient reports black stools for the past 3 days. Patient denies any abdominal tenderness. Patient does complain of nausea denies any vomiting. Patient reports urinary frequency yesterday that has since resolved. Patient does report occasionally feeling lightheaded. Patient denies any fever. Patient states she last had a colonoscopy 2 years ago and it was normal. Patient denies any history of blood in emesis. Patient denies any history of diverticulitis or diverticulosis. Patient does take Xarelto for A. fib. TRAVEL OUTSIDE OF THE [place] IN LAST 30 DAYS: No - HPI Patient complains to provider of: Dark/tarry stools Onset: Other - 2 Days ago Timing/Duration: Persistent Quality of pain: No pain Pain Level: Denies Dark Stools: Black Exacerbated by: Denies Relieved by: Denies Similar symptoms previously: No Recently seen / treated by doctor: No - Related Data Allergies/Adverse Reactions: sulfamethoxazole [From Septra DS] Allergy (Verified 10/25/18 08:58) trimethoprim [From Septra DS] Allergy (Verified 10/25/18 08:58) Past Medical History - General Information source: Patient - Social History Smoking Status: Never Smoker Chew tobacco use (# tins/day): No Frequency of alcohol use: Rare Drug Abuse: None Lives with: Family Family History: Reviewed & Not Pertinent, Hypertension Patient has suicidal ideation: No Patient has homicidal ideation: No - Past Medical History Cardiac Medical History: Reports: Hx Atrial Fibrillation, Hx Hypercholesterolemia, Hx Hypertension Pulmonary Medical History: Reports: Hx COPD Endocrine Medical History: Reports: Hx Diabetes Mellitus Type 2 Renal/ Medical History: Denies: Hx Peritoneal Dialysis Past Surgical History: Reports: Hx Hysterectomy, Hx Tonsillectomy - Immunizations Hx Diphtheria, Pertussis, Tetanus Vaccination: No Review of Systems - Review of Systems Constitutional: No symptoms reported. denies: Chills, Fever, Recent illness EENT: No symptoms reported Cardiovascular: Lightheaded. denies: Chest pain Respiratory: No symptoms reported. denies: Cough, Short of breath Gastrointestinal: Nausea, Black stools. denies: Abdominal pain, Vomiting Genitourinary: Frequency. denies: Dysuria, Flank pain Female Genitourinary: No symptoms reported Musculoskeletal: No symptoms reported. denies: Back pain Skin: No symptoms reported Hematologic/Lymphatic: No symptoms reported Neurological/Psychological: No symptoms reported Physical Exam - Vital signs Vitals: Temp Pulse Resp BP Pulse Ox 97.7 F 67 18 171/95 H 99 02/14/19 16:11 02/14/19 16:11 02/14/19 16:11 02/14/19 16:11 02/14/19 16:11 - General General appearance: Appears well, Alert In distress: None - HEENT Head: Normocephalic, Atraumatic Eyes: Normal Conjunctiva: Normal Nasal: Normal Mouth/Lips: Normal Mucous membranes: Normal Pharynx: Normal Neck: Normal, Supple. No: Lymphadenopathy - Respiratory Respiratory status: No respiratory distress Chest status: Nontender Breath sounds: Normal Chest palpation: Normal - Cardiovascular Rhythm: Irregularly irregular Heart sounds: S1 appreciated, S2 appreciated - Abdominal Inspection: Normal Distension: No distension Bowel sounds: Normal Tenderness: Nontender Organomegaly: No organomegaly - Rectal Tenderness: No Stool: See lab result Hemorrhoids: External - Back Back: Normal, Nontender. No: CVA tenderness - Extremities General upper extremity: Normal inspection, Normal ROM General lower extremity: Normal inspection, Normal ROM - Neurological Neuro grossly intact: Yes Cognition: Normal Orientation: AAOx4 Elvia Coma Scale Eye Opening: Spontaneous Elvia Coma Scale Verbal: Oriented Elvia Coma Scale Motor: Obeys Commands Elvia Coma Scale Total: 15 - Psychological Associated symptoms: Normal affect, Normal mood - Skin Skin Temperature: Warm Skin Moisture: Dry Skin Color: Normal Course - Re-evaluation Re-evalutation: 02/14/19 18:[address] Corona regarding patient presentation and evaluation. Recommends consultation with hospitalist for admission as patient may likely need endoscopy procedure to further evaluate source of her bleeding given the fact that she has melena as well as takes Xarelto for A. fib. POS hemeoccult positive. 02/14/19 18:[address] Simons who states that all the surgeons are able to do endoscopy procedures aside from Dr. Dey. 02/14/19 19:[address] Sorensen regarding patient presentation, Dr. Sorensen agrees to evaluate patient for admission at this time. Recommends repeating occult stool but having it sent to the lab for testing. - Vital Signs Vital signs: Temp Pulse Resp BP Pulse Ox 97.7 F 67 18 143/76 H 99 02/14/19 16:11 02/14/19 16:11 02/14/19 20:02 02/14/19 20:02 02/14/19 20:02 - Laboratory Result Diagrams: 02/14/19 20:24 02/14/19 16:45 Laboratory results interpreted by me: 02/14/19 02/14/19 02/14/19 16:45 16:45 16:45 RDW 14.1 H Phillips % (Auto) 16.2 H PT 16.1 H Est GFR (MDRD) Non-Af 52 L Urine Ascorbic Acid 02/14/19 16:45 RDW Phillips % (Auto) PT Est GFR (MDRD) Non-Af Urine Ascorbic Acid 20 H Labs- Entire Visit 02/14/19 02/14/19 02/14/19 16:45 16:45 16:45 WBC 4.0 RBC 4.01 Hgb 12.3 Hct 36.9 MCV 92 MCH 30.8 MCHC 33.4 RDW 14.1 H Plt Count 220 Lymph % (Auto) 37.0 Phillips % (Auto) 16.2 H Eos % (Auto) 1.0 Baso % (Auto) 1.0 Absolute Neuts (auto) 1.8 Absolute Lymphs (auto) 1.5 Absolute Monos (auto) 0.7 Absolute Eos (auto) 0.0 Absolute Basos (auto) 0.0 Seg Neutrophils % 44.8 PT 16.1 H INR 1.28 APTT 31.5 Sodium 137.7 Potassium 4.2 Chloride 102 Carbon Dioxide 28 Anion Gap 8 BUN 16 Creatinine 1.04 Est GFR ( Amer) > 60 Est GFR (MDRD) Non-Af 52 L Glucose 97 Calcium 10.0 Total Bilirubin 0.5 Direct Bilirubin 0.1 Neonat Total Bilirubin Not Reportable Neonat Direct Bilirubin Not Reportable Neonat Indirect Bili Not Reportable AST 26 ALT 22 Alkaline Phosphatase 79 Total Protein 7.4 Albumin 4.2 Lipase 45.8 Urine Color Urine Appearance Urine pH Ur Specific [place] Urine Protein Urine Glucose (UA) Urine Ketones Urine Blood Urine Nitrite (Reflex) Urine Bilirubin Urine Urobilinogen Leukocyte Esterase Rfl Urine RBC (Auto) U Hyaline Cast (Auto) Urine Bacteria (Auto) Urine WBC (Reflex) Squamous Epi Cells Auto Urine Mucus (Auto) Urine Ascorbic Acid Blood Type Antibody Screen 02/14/19 02/14/19 16:45 16:45 WBC RBC Hgb Hct MCV MCH MCHC RDW Plt Count Lymph % (Auto) Phillips % (Auto) Eos % (Auto) Baso % (Auto) Absolute Neuts (auto) Absolute Lymphs (auto) Absolute Monos (auto) Absolute Eos (auto) Absolute Basos (auto) Seg Neutrophils % PT INR APTT Sodium Potassium Chloride Carbon Dioxide Anion Gap BUN Creatinine Est GFR ( Amer) Est GFR (MDRD) Non-Af Glucose Calcium Total Bilirubin Direct Bilirubin Neonat Total Bilirubin Neonat Direct Bilirubin Neonat Indirect Bili AST ALT Alkaline Phosphatase Total Protein Albumin Lipase Urine Color YELLOW Urine Appearance SLIGHTLY-CLOUDY Urine pH 5.0 Ur Specific [place] 1.016 Urine Protein NEGATIVE Urine Glucose (UA) NEGATIVE Urine Ketones NEGATIVE Urine Blood NEGATIVE Urine Nitrite (Reflex) NEGATIVE Urine Bilirubin NEGATIVE Urine Urobilinogen NEGATIVE Leukocyte Esterase Rfl NEGATIVE Urine RBC (Auto) 2 U Hyaline Cast (Auto) 4 Urine Bacteria (Auto) 1+ Urine WBC (Reflex) 2 Squamous Epi Cells Auto 2 Urine Mucus (Auto) RARE Urine Ascorbic Acid 20 H Blood Type O POSITIVE Antibody Screen NEGATIVE Discharge - Discharge Clinical Impression: Melena, Anticoagulant long-term use, Nausea A-fib Qualifiers: Atrial fibrillation type: unspecified Qualified Code(s): I48.91 - Unspecified atrial fibrillation Condition: Stable Disposition: ADMITTED INPATIENT Admitting Provider: Edu (Hospitalist) Unit Admitted: [facility]
[2019-02-14] MEDS ORDERED: PANTOPRAZOLE SODIUM 40 MG VIAL IV ONE (17:10)
[2019-02-14 17:11] LABS: ABSOLUTE LYMPHOCYTES (AUTO) 1.5 10^3/uL (0.5-4.7); ABSOLUTE MONOCYTES (AUTO) 0.7 10^3/uL (0.1-1.4); ABSOLUTE NEUT (AUTO) 1.8 10^3/uL (1.7-8.2); HEMATOCRIT 36.9 % (36.0-47.0); HEMOGLOBIN 12.3 g/dL (12.0-15.5); MEAN CORPUSCULAR HEMOGLOBIN 30.8 pg (27.0-33.4); MEAN CORPUSCULAR HGB CONC 33.4 g/dL (32.0-36.0); MEAN CORPUSCULAR VOLUME 92 fl (80-97); MONOCYTES % (AUTO) 16.2 % (3-13); PLATELET COUNT 220 10^3/uL (150-450); RED BLOOD COUNT 4.01 10^6/uL (3.72-5.28); RED CELL DISTRIBUTION WIDTH 14.1 % (11.5-14.0); SEGMENTED NEUTROPHILS % (AUTO) 44.8 % (42-78); TOTAL CELLS COUNTED % (AUTO) 100 %
[2019-02-14 17:19] LABS: APPEARANCE,URINE SLIGHTLY-CLOUDY; BILIRUBIN,URINE NEGATIVE (NEGATIVE); COLOR,URINE YELLOW; GLUCOSE, URINE NEGATIVE (NEGATIVE); INTERNATIONAL RATION (INR) 1.28; KETONES,URINE NEGATIVE (NEGATIVE); PROTEIN,URINE NEGATIVE (NEGATIVE); PROTHROMBIN TIME 16.1 SEC (11.4-15.4); URINE SPECIFIC GRAVITY 1.016; UROBILINOGEN,URINE NEGATIVE mg/dL (<2.0)
[2019-02-14 17:20] LABS: PARTIAL THROMBOPLASTIN TIME 31.5 SEC (23.5-35.8)
[2019-02-14 17:32] LABS: ALBUMIN 4.2 g/dL (3.5-5.0); ALKALINE PHOSPHATASE 79 U/L (38-126); ANION GAP 8 (5-19); ASPARTATE AMINO TRANSFERASE 26 U/L (14-36); BILIRUBIN,DIRECT 0.1 mg/dL (0.0-0.4); BILIRUBIN,TOTAL 0.5 mg/dL (0.2-1.3); BLOOD UREA NITROGEN 16 mg/dL (7-20); CARBON DIOXIDE 28 mmol/L (22-30); CHLORIDE 102 mmol/L (98-107); GLUCOSE 97 mg/dL (75-110); POTASSIUM 4.2 mmol/L (3.6-5.0); TOTAL PROTEIN 7.4 g/dL (6.3-8.2)
[2019-02-14] MEDS: PANTOPRAZOLE SODIUM 40 MG VIAL IV PRN (19:30)
[2019-02-14] MEDS ORDERED: IPRATROPIUM/ALBUTEROL 0.5-2.5 MG/3 ML AMPUL NEB PRN (19:42)
[2019-02-14] MEDS ORDERED: ONDANSETRON HCL INJ/PF 4 MG/2 ML SDV IV PRN (19:42)
[2019-02-14] MEDS ORDERED: ACETAMINOPHEN 325 MG TABLET PO PRN (19:42)
[2019-02-14] MEDS ORDERED: NORMAL SALINE 1000 ML 1,000 ML IV SCH (19:45)
[2019-02-14] MEDS: IPRATROPIUM/ALBUTEROL 0.5-2.5 MG/3 ML AMPUL NEB SCH (20:32)
[2019-02-14 20:39] LABS: ABSOLUTE EOSINOPHILS # (AUTO) 0.1 10^3/uL (0.0-0.6); ABSOLUTE LYMPHOCYTES (AUTO) 1.6 10^3/uL (0.5-4.7); ABSOLUTE MONOCYTES (AUTO) 0.7 10^3/uL (0.1-1.4); ABSOLUTE NEUT (AUTO) 1.9 10^3/uL (1.7-8.2); BASOPHILS % (AUTO) 1.1 % (0-2); EOSINOPHILS % (AUTO) 1.2 % (0-6); HEMATOCRIT 35.3 % (36.0-47.0); HEMOGLOBIN 11.8 g/dL (12.0-15.5); MEAN CORPUSCULAR HEMOGLOBIN 30.9 pg (27.0-33.4); MEAN CORPUSCULAR HGB CONC 33.3 g/dL (32.0-36.0); MEAN CORPUSCULAR VOLUME 93 fl (80-97); MONOCYTES % (AUTO) 15.9 % (3-13); PLATELET COUNT 202 10^3/uL (150-450); RED CELL DISTRIBUTION WIDTH 13.8 % (11.5-14.0); SEGMENTED NEUTROPHILS % (AUTO) 43.8 % (42-78); TOTAL CELLS COUNTED % (AUTO) 100 %; WHITE BLOOD COUNT 4.2 10^3/uL (4.0-10.5)
[2019-02-15 01:54] LABS: ABSOLUTE BASOPHILS # (AUTO) 0.1 10^3/uL (0.0-0.2); ABSOLUTE EOSINOPHILS # (AUTO) 0.1 10^3/uL (0.0-0.6); ABSOLUTE LYMPHOCYTES (AUTO) 1.7 10^3/uL (0.5-4.7); ABSOLUTE MONOCYTES (AUTO) 0.7 10^3/uL (0.1-1.4); ABSOLUTE NEUT (AUTO) 1.6 10^3/uL (1.7-8.2); BASOPHILS % (AUTO) 1.4 % (0-2); EOSINOPHILS % (AUTO) 1.7 % (0-6); HEMATOCRIT 34.7 % (36.0-47.0); HEMOGLOBIN 11.7 g/dL (12.0-15.5); MEAN CORPUSCULAR HEMOGLOBIN 30.8 pg (27.0-33.4); MEAN CORPUSCULAR HGB CONC 33.7 g/dL (32.0-36.0); MEAN CORPUSCULAR VOLUME 92 fl (80-97); MONOCYTES % (AUTO) 16.4 % (3-13); PLATELET COUNT 201 10^3/uL (150-450); RED BLOOD COUNT 3.79 10^6/uL (3.72-5.28); RED CELL DISTRIBUTION WIDTH 13.9 % (11.5-14.0); SEGMENTED NEUTROPHILS % (AUTO) 38.5 % (42-78); TOTAL CELLS COUNTED % (AUTO) 100 %; WHITE BLOOD COUNT 4.1 10^3/uL (4.0-10.5)
[2019-02-15] MEDS ORDERED: METOPROLOL TARTRATE PF/INJ 5 MG/5 ML SDV IV ONE (04:41)
[2019-02-15] MEDS ORDERED: METOPROLOL TARTRATE PF/INJ 5 MG/5 ML SDV IV PRN (04:41)
--- NOTE | 2019-02-15 04:47 | PDOC H&P ---
History of Present Illness Admission Date/PCP: 02/14/19 20:09 ORA MICHAEL MD Patient complains of: Black stools History of Present Illness: DEANA DALE is a 78 year old female with a past history of COPD, diabetes, atrial fibrillation on Xarelto and aspirin. Patient presents with 3 days of epigastric discomfort, nausea without vomiting and black stools x4 prompting evaluation in the emergency room where she is found to have an unremarkable CBC, bedside fecal occult positive. No hemodynamic instability. Denies previous episode, denies any medications and is otherwise felt well. She is placed on IV Protonix and referred to the hospitalist for admission. Past Medical History Cardiac Medical History: Reports: Atrial Fibrillation, Hyperlipidema, Hypertension Pulmonary Medical History: Reports: Chronic Obstructive Pulmonary Disease (COPD) Endocrine Medical History: Reports: Diabetes Mellitus Type 2 Past Surgical History Past Surgical History: Reports: Hysterectomy, Tonsillectomy Social History Information Source: Patient, [facility] Records Lives with: Family Smoking Status: Former Smoker Electronic Cigarette use?: No Last Time Smoked: 15 years ago Frequency of Alcohol Use: Rare Hx Recreational Drug Use: No Drugs: None Hx Prescription Drug Abuse: No - Advance Directive Resuscitation Status: Full Code Family History Family History: DM, Hypertension Parental Family History Reviewed: Yes Children Family History Reviewed: Yes Sibling(s) Family History Reviewed.: Yes Medication/Allergy Home Medications: Albuterol Sulfate [Proair HFA Inhalation Aerosol 8.5 gm MDI] 2 puff IH Q4HP PRN 02/14/19 Alprazolam [Xanax 0.25 mg Tablet] 0.25 mg PO Q6HP PRN 02/14/19 Amlodipine Besylate [Norvasc 5 mg Tablet] 5 mg PO DAILY 02/14/19 Calcium Carbonate/Vitamin D3 [Calcium 500 + Vit D Caplet] 1 tab PO BID 02/14/19 Cholecalciferol (Vitamin D3) [Vitamin D3 1000 Unit Tablet] 1,000 unit PO DAILY 02/14/19 Docusate Sodium [Colace 100 mg Capsule] 100 mg PO BID 02/14/19 Furosemide [Lasix 20 mg Tablet] 20 mg PO DAILY 02/14/19 Hydrocortisone/Acetic Acid [Hydrocortison-Acetic Acid Soln] 2 drop AU QIDP PRN 02/14/19 Ketotifen Fumarate [Refresh] 1 drop OU DAILYP PRN 02/14/19 Levothyroxine Sodium 125 mcg PO Q6AM 02/14/19 Metformin HCl [Glucophage XR 500 mg Tablet] 500 mg PO QPM 02/14/19 Metoprolol Tartrate [Lopressor 100 mg Tablet] 100 mg PO QAM 02/14/19 Metoprolol Tartrate [Lopressor 50 mg Tablet] 50 mg PO QPM 02/14/19 Multivitamin [Multiple Vitamins] 1 tab PO DAILY 02/14/19 Rivaroxaban [Xarelto] 20 mg PO DAILY 02/14/19 Rosuvastatin Calcium [Crestor 20 mg Tablet] 20 mg PO QPM 02/14/19 Telmisartan [Micardis 20 mg Tablet] 20 mg PO DAILY 02/14/19 Tiotropium [place] [Spiriva Handihaler 5 Cap/Kit (18 Mcg/Cap)] 1 cap IH DAILY 02/14/19 Tramadol HCl [Ultram 50 mg Tablet] 50 mg PO Q8HP PRN 02/14/19 Ubidecarenone/Vit E Acet [Co Q-10 100 mg Softgel] 1 cap PO DAILY 02/14/19 Vitamin E (Dl, Acetate) [Vitamin E 400 Unit Capsule] 400 unit PO DAILY 02/14/19 Allergies/Adverse Reactions: sulfamethoxazole [From Septra DS] Allergy (Verified 10/25/18 08:58) trimethoprim [From Septra DS] Allergy (Verified 10/25/18 08:58) Review of Systems Constitutional: ABSENT: chills, fever(s), headache(s), weight gain, weight loss Eyes: ABSENT: visual disturbances Ears: ABSENT: hearing changes Cardiovascular: ABSENT: chest pain, dyspnea on exertion, edema, orthropnea, palpitations Respiratory: ABSENT: cough, hemoptysis Gastrointestinal: ABSENT: abdominal pain, constipation, diarrhea, hematemesis, hematochezia, nausea, vomiting Genitourinary: ABSENT: dysuria, hematuria Musculoskeletal: ABSENT: joint swelling Integumentary: ABSENT: rash, wounds Neurological: ABSENT: abnormal gait, abnormal speech, confusion, dizziness, focal weakness, syncope Psychiatric: ABSENT: anxiety, depression, homidical ideation, suicidal ideation Endocrine: ABSENT: cold intolerance, heat intolerance, polydipsia, polyuria Hematologic/Lymphatic: ABSENT: easy bleeding, easy bruising Physical Exam Vital Signs: Temp Pulse Resp BP Pulse Ox 97.8 F 77 16 147/61 H 100 02/15/19 00:50 02/15/19 02:00 02/15/19 00:50 02/15/19 00:50 02/15/19 00:50 Intake & Output 02/13/19 02/14/19 02/15/19 11:59 11:59 11:59 Intake Total 50 Output Total 500 Balance -450 Weight 94.2 kg General appearance: PRESENT: no acute distress, well-developed, well-nourished Head exam: PRESENT: atraumatic, normocephalic Eye exam: PRESENT: conjunctiva pink, EOMI, PERRLA. ABSENT: scleral icterus Ear exam: PRESENT: normal external ear exam Mouth exam: PRESENT: moist, tongue midline Neck exam: ABSENT: carotid bruit, JVD, lymphadenopathy, thyromegaly Respiratory exam: PRESENT: clear to auscultation august. ABSENT: rales, rhonchi, wheezes Cardiovascular exam: PRESENT: RRR. ABSENT: diastolic murmur, rubs, systolic murmur Pulses: PRESENT: normal dorsalis pedis pul Vascular exam: PRESENT: normal capillary refill GI/Abdominal exam: PRESENT: normal bowel sounds, soft. ABSENT: distended, guarding, mass, organolmegaly, rebound, tenderness Rectal exam: PRESENT: deferred Extremities exam: PRESENT: full ROM. ABSENT: calf tenderness, clubbing, pedal edema Neurological exam: PRESENT: alert, awake, oriented to person, oriented to place, oriented to time, oriented to situation, CN II-XII grossly intact. ABSENT: motor sensory deficit Psychiatric exam: PRESENT: appropriate affect, normal mood. ABSENT: homicidal ideation, suicidal ideation Skin exam: PRESENT: dry, intact, warm. ABSENT: cyanosis, rash Results Laboratory Results: 02/15/19 01:41 02/14/19 16:45 02/14/19 02/14/19 02/14/19 16:45 16:45 16:45 WBC 4.0 RBC 4.01 Hgb 12.3 Hct 36.9 MCV 92 MCH 30.8 MCHC 33.4 RDW 14.1 H Plt Count 220 Seg Neutrophils % 44.8 Sodium 137.7 Potassium 4.2 Chloride 102 Carbon Dioxide 28 Anion Gap 8 BUN 16 Creatinine 1.04 Est GFR ( Amer) > 60 Glucose 97 Calcium 10.0 Total Bilirubin 0.5 AST 26 Alkaline Phosphatase 79 Total Protein 7.4 Albumin 4.2 Lipase 45.8 Urine Color Urine Appearance Urine pH Ur Specific [place] Urine Protein Urine Glucose (UA) Urine Ketones Urine Blood Urine RBC (Auto) Blood Type O POSITIVE Antibody Screen NEGATIVE 02/14/19 02/14/19 02/15/19 16:45 20:24 01:41 WBC 4.2 4.1 RBC 3.80 3.79 Hgb 11.8 L 11.7 L Hct 35.3 L 34.7 L MCV 93 92 MCH 30.9 30.8 MCHC 33.3 33.7 RDW 13.8 13.9 Plt Count 202 201 Seg Neutrophils % 43.8 38.5 L Sodium Potassium Chloride Carbon Dioxide Anion Gap BUN Creatinine Est GFR ( Amer) Glucose Calcium Total Bilirubin AST Alkaline Phosphatase Total Protein Albumin Lipase Urine Color YELLOW Urine Appearance SLIGHTLY-CLOUDY Urine pH 5.0 Ur Specific [place] 1.016 Urine Protein NEGATIVE Urine Glucose (UA) NEGATIVE Urine Ketones NEGATIVE Urine Blood NEGATIVE Urine RBC (Auto) 2 Blood Type Antibody Screen Assessment and Plan - Diagnosis (1) Melena Is this a current diagnosis for this admission?: Yes Plan: Presumed upper GI bleed secondary to aspirin with Xarelto without GI pro phylaxis. IMCU admission, serial CBC, continue IV Protonix and bowel rest. Consider GI versus surgical consultation. (2) Atrial fibrillation Qualifiers: Atrial fibrillation type: unspecified Qualified Code(s): I48.91 - Unspecif ied atrial fibrillation Is this a current diagnosis for this admission?: Yes Plan: IV Lopressor ordered, hold Xarelto (3) Anticoagulant long-term use Is this a current diagnosis for this admission?: Yes Plan: Hold Xarelto and aspirin given acute GI bleed, if able to resume add PPI (4) Diabetes Is this a current diagnosis for this admission?: Yes Plan: Humalog sliding scale every 6 hours as needed while n.p.o. - Time Time Spent with patient: 25-34 minutes - Inpatient Certification Medical Necessity: Need Close Monitoring Due to Risk of Patient Decompensation
[2019-02-15] MEDS: PANTOPRAZOLE SODIUM 40 MG VIAL IV PRN (06:30)
[2019-02-15] MEDS ORDERED: ALBUTEROL SULFATE HFA (90 MCG/PUFF) 200 PUFF/8.5 GM MDI IH PRN (07:32)
[2019-02-15] MEDS ORDERED: (PENDING PHARMACY ID) (Ketotifen Fumarate [Refresh] 1 DROP) OU PRN (07:32)
[2019-02-15 07:50] LABS: ABSOLUTE EOSINOPHILS # (AUTO) 0.1 10^3/uL (0.0-0.6); ABSOLUTE LYMPHOCYTES (AUTO) 1.3 10^3/uL (0.5-4.7); ABSOLUTE MONOCYTES (AUTO) 0.6 10^3/uL (0.1-1.4); ABSOLUTE NEUT (AUTO) 1.5 10^3/uL (1.7-8.2); BASOPHILS % (AUTO) 1.1 % (0-2); EOSINOPHILS % (AUTO) 1.9 % (0-6); HEMATOCRIT 34.9 % (36.0-47.0); HEMOGLOBIN 11.7 g/dL (12.0-15.5); LYMPHOCYTES % (AUTO) 36.7 % (13-45); MEAN CORPUSCULAR HEMOGLOBIN 31.1 pg (27.0-33.4); MEAN CORPUSCULAR HGB CONC 33.6 g/dL (32.0-36.0); MEAN CORPUSCULAR VOLUME 93 fl (80-97); MONOCYTES % (AUTO) 18.1 % (3-13); PLATELET COUNT 205 10^3/uL (150-450); RED BLOOD COUNT 3.76 10^6/uL (3.72-5.28); RED CELL DISTRIBUTION WIDTH 13.6 % (11.5-14.0); SEGMENTED NEUTROPHILS % (AUTO) 42.2 % (42-78); TOTAL CELLS COUNTED % (AUTO) 100 %; WHITE BLOOD COUNT 3.6 10^3/uL (4.0-10.5)
[2019-02-15] MEDS ORDERED: METOPROLOL TARTRATE 100 MG TABLET PO SCH (08:00)
[2019-02-15 08:04] LABS: ANION GAP 5 (5-19); BLOOD UREA NITROGEN 13 mg/dL (7-20); CARBON DIOXIDE 28 mmol/L (22-30); CHLORIDE 105 mmol/L (98-107); GLUCOSE 107 mg/dL (75-110)
[2019-02-15] MEDS ORDERED: CARBOXYMETHYLCELLULOSE SOD 0.5% 0.4 ML DROPERETTE OU PRN (08:15)
[2019-02-15] MEDS: IPRATROPIUM/ALBUTEROL 0.5-2.5 MG/3 ML AMPUL NEB SCH (09:14)
[2019-02-15] MEDS ORDERED: MULTIVITAMIN TABLET PO SCH (10:00)
[2019-02-15] MEDS ORDERED: (PENDING PHARMACY ID) (Calcium Carbonate/Vitamin D3 [Calcium 500 + Vit D Caplet] 1 TAB) PO SCH (10:00)
[2019-02-15] MEDS ORDERED: LOSARTAN POTASSIUM 25 MG TABLET PO SCH (10:00)
[2019-02-15] MEDS ORDERED: CALCIUM CARBONATE 250 MG/VITAMIN D3 125 UNIT TABLET PO SCH (10:00)
[2019-02-15] MEDS ORDERED: TIOTROPIUM BROMIDE DPI 5 CAP/KIT (18 MCG/CAP) IH SCH (10:00)
[2019-02-15] MEDS ORDERED: (PENDING PHARMACY ID) (Ubidecarenone/Vit E Acet [Co Q-10 100 Mg Softgel] 1 CAP) PO SCH (10:00)
[2019-02-15] MEDS ORDERED: AMLODIPINE BESYLATE 5 MG TABLET PO SCH (10:00)
[2019-02-15] MEDS ORDERED: (PENDING PHARMACY ID) (Telmisartan [Micardis 20 Mg Tablet] 20 MG) PO SCH (10:00)
[2019-02-15] MEDS ORDERED: DOCUSATE SODIUM 100 MG CAPSULE PO SCH (10:00)
[2019-02-15] MEDS ORDERED: UMECLIDINIUM BROMIDE 62.5 MCG/DOSE IH SCH (10:00)
[2019-02-15 11:45] VITALS: BP 136/62
--- NOTE | 2019-02-15 12:07 | PDOC DISCHARGE SUMMARY ---
Impression - Admit/DC Date/PCP Admission Date/Primary Care Provider: 02/14/19 20:09 ORA MICHAEL MD Discharge Date: 02/15/19 - Additional Information Resuscitation Status: Full Code Discharge Diet: Cardiac Discharge Activity: Activity As Tolerated, Balance Activity w/Rest Referrals: ORA MICHAEL MD [Primary Care Provider] - Follow up as needed Prescriptions: Pantoprazole Sodium [Protonix [address] Tablet] 40 mg PO QAM #30 tablet.dr Home Medications: Albuterol Sulfate [Proair HFA Inhalation Aerosol 8.5 gm MDI] 2 puff IH Q4HP PRN 02/14/19 Alprazolam [Xanax 0.25 mg Tablet] 0.25 mg PO Q6HP PRN 02/14/19 Amlodipine Besylate [Norvasc 5 mg Tablet] 5 mg PO DAILY 02/14/19 Calcium Carbonate/Vitamin D3 [Calcium 500 + Vit D Caplet] 1 tab PO BID 02/14/19 Docusate Sodium [Colace 100 mg Capsule] 100 mg PO BID 02/14/19 Furosemide [Lasix 20 mg Tablet] 20 mg PO DAILY 02/14/19 Hydrocortisone/Acetic Acid [Hydrocortison-Acetic Acid Soln] 2 drop AU QIDP PRN 02/14/19 Ketotifen Fumarate [Refresh] 1 drop OU DAILYP PRN 02/14/19 Levothyroxine Sodium 125 mcg PO Q6AM 02/14/19 Metformin HCl [Glucophage XR 500 mg Tablet] 500 mg PO QPM 02/14/19 Metoprolol Tartrate [Lopressor 100 mg Tablet] 100 mg PO QAM 02/14/19 Metoprolol Tartrate [Lopressor 50 mg Tablet] 50 mg PO QPM 02/14/19 Multivitamin [Multiple Vitamins] 1 tab PO DAILY 02/14/19 Rosuvastatin Calcium [Crestor 20 mg Tablet] 20 mg PO QPM 02/14/19 Telmisartan [Micardis 20 mg Tablet] 20 mg PO DAILY 02/14/19 Tiotropium Volcano [Spiriva Handihaler 5 Cap/Kit (18 Mcg/Cap)] 1 cap IH DAILY 02/14/19 Tramadol HCl [Ultram 50 mg Tablet] 50 mg PO Q8HP PRN 02/14/19 Ubidecarenone/Vit E Acet [Co Q-10 100 mg Softgel] 1 cap PO DAILY 02/14/19 Vitamin E (Dl, Acetate) [Vitamin E 400 Unit Capsule] 400 unit PO DAILY 02/14/19 Acetaminophen [Tylenol 325 mg Tablet] 650 mg PO Q4HP PRN tablet 02/15/19 Pantoprazole Sodium [Protonix [address] Tablet] 40 mg PO QAM #30 tablet. 02/15/19 History of Present Illiness History of Present Illness: Per H&P by Dr. Sorensen: DEANA DALE is a 78 year old female with a past history of COPD, diabetes, atrial fibrillation on Xarelto and aspirin. Patient presents with 3 days of epigastric discomfort, nausea without vomiting and black stools x4 prompting evaluation in the emergency room where she is found to have an unremarkable CBC, bedside fecal occult positive. No hemodynamic instability. Denies previous episode, denies any medications and is otherwise felt well. She is placed on IV Protonix and referred to the hospitalist for admission. Hospital Course Hospital Course: The patient was admitted for observation overnight related to melena; presumed to be upper GI bleed secondary to aspirin and Xarelto use without GI prophylaxis. Hemoglobin trended from 12.3->11.7; likely secondary to IV fluids. The patient remained hemodynamically stable with normal vital signs, asymptomatic while ambulatory, and negative orthostatic blood pressures. Discussed with Dr. Hunt, surgery. Recommendations are to hold Xarelto for 1 month. No indications for repeat colonoscopy at this time as she had a negative study completed 2 years ago. If her melena does not resolve spontaneously following discontinuing Xarelto and addition of PPI, may consider outpatient follow up with GI or Surgery for diagnostic EGD. Colonoscopy not likely to be required unless patient develops significant bleeding requiring transfusions as she had recent normal screening. [id number] Score 6; 9.7% yearly CVA risk HAS-BLED Score 4; 8.9% yearly hemorrhage risk Patient is discharged to home with self-care in stable condition. She is advised to hold her Xarelto until instructed to resume by her PCP or establish farmworker rice. Follow-up with PCP next week and with farmworker rice as scheduled. Take other medications as prescribed. Return to the emergency department as needed for concerning symptoms. Physical Exam Vital Signs: Temp Pulse Resp BP Pulse Ox 97.6 F 57 L 16 136/62 H 100 02/15/19 11:39 02/15/19 11:39 02/15/19 11:39 02/15/19 11:39 02/15/19 11:39 Intake & Output 02/14/19 02/15/19 02/16/19 06:59 06:59 06:59 Intake Total 50 Output Total 850 Balance -800 Weight 94.2 kg General appearance: PRESENT: no acute distress, cooperative, obese, well- developed, well-nourished Head exam: PRESENT: atraumatic, normocephalic Eye exam: PRESENT: conjunctiva pink, EOMI, PERRLA. ABSENT: scleral icterus Ear exam: PRESENT: normal external ear exam Mouth exam: PRESENT: moist, tongue midline Neck exam: ABSENT: carotid bruit, JVD, lymphadenopathy, thyromegaly Respiratory exam: PRESENT: clear to auscultation auguts. ABSENT: rales, rhonchi, wheezes Cardiovascular exam: PRESENT: RRR. ABSENT: diastolic murmur, rubs, systolic murmur Pulses: PRESENT: normal dorsalis pedis pul Vascular exam: PRESENT: normal capillary refill GI/Abdominal exam: PRESENT: normal bowel sounds, soft. ABSENT: distended, guarding, mass, organolmegaly, rebound, tenderness Rectal exam: PRESENT: deferred Extremities exam: PRESENT: full ROM. ABSENT: calf tenderness, clubbing, pedal edema Musculoskeletal exam: PRESENT: ambulatory Neurological exam: PRESENT: alert, awake, oriented to person, oriented to place, oriented to time, oriented to situation, CN II-XII grossly intact. ABSENT: motor sensory deficit Psychiatric exam: PRESENT: appropriate affect, normal mood. ABSENT: homicidal ideation, suicidal ideation Skin exam: PRESENT: dry, intact, warm. ABSENT: cyanosis, rash Results Laboratory Results: WBC 3.6 10^3/uL (4.0-10.5) L 02/15/19 07:40 RBC 3.76 10^6/uL (3.72-5.28) 02/15/19 07:40 Hgb 11.7 g/dL (12.0-15.5) L 02/15/19 07:40 Hct 34.9 % (36.0-47.0) L 02/15/19 07:40 MCV 93 fl (80-97) 02/15/19 07:40 MCH 31.1 pg (27.0-33.4) 02/15/19 07:40 MCHC 33.6 g/dL (32.0-36.0) 02/15/19 07:40 RDW 13.6 % (11.5-14.0) 02/15/19 07:40 Plt Count 205 10^3/uL (150-450) 02/15/19 07:40 Lymph % (Auto) 36.7 % (13-45) 02/15/19 07:40 [place] % (Auto) 18.1 % (3-13) H 02/15/19 07:40 Eos % (Auto) 1.9 % (0-6) 02/15/19 07:40 Baso % (Auto) 1.1 % (0-2) 02/15/19 07:40 Absolute Neuts (auto) 1.5 10^3/uL (1.7-8.2) L 02/15/19 07:40 Absolute Lymphs (auto) 1.3 10^3/uL (0.5-4.7) 02/15/19 07:40 Absolute Monos (auto) 0.6 10^3/uL (0.1-1.4) 02/15/19 07:40 Absolute Eos (auto) 0.1 10^3/uL (0.0-0.6) 02/15/19 07:40 Absolute Basos (auto) 0.0 10^3/uL (0.0-0.2) 02/15/19 07:40 Seg Neutrophils % 42.2 % (42-78) 02/15/19 07:40 PT 16.1 SEC (11.4-15.4) H 02/14/19 16:45 INR 1.28 02/14/19 16:45 APTT 31.5 SEC (23.5-35.8) 02/14/19 16:45 Sodium 138.2 mmol/L (137-145) 02/15/19 07:40 Potassium 4.0 mmol/L (3.6-5.0) 02/15/19 07:40 Chloride 105 mmol/L (98-107) 02/15/19 07:40 Carbon Dioxide 28 mmol/L (22-30) 02/15/19 07:40 Anion Gap 5 (5-19) 02/15/19 07:40 BUN 13 mg/dL (7-20) 02/15/19 07:40 Creatinine 0.89 mg/dL (0.52-1.25) 02/15/19 07:40 Est GFR ( Amer) > 60 (>60) 02/15/19 07:40 Est GFR (MDRD) Non-Af > 60 (>60) 02/15/19 07:40 Glucose 107 mg/dL (75-110) 02/15/19 07:40 Calcium 9.0 mg/dL (8.4-10.2) 02/15/19 07:40 Total Bilirubin 0.5 mg/dL (0.2-1.3) 02/14/19 16:45 Direct Bilirubin 0.1 mg/dL (0.0-0.4) 02/14/19 16:45 Neonat Total Bilirubin Not Reportable 02/14/19 16:45 Neonat Direct Bilirubin Not Reportable 02/14/19 16:45 Neonat Indirect Bili Not Reportable 02/14/19 16:45 AST 26 U/L (14-36) 02/14/19 16:45 ALT 22 U/L (<35) 02/14/19 16:45 Alkaline Phosphatase 79 U/L (38-126) 02/14/19 16:45 Total Protein 7.4 g/dL (6.3-8.2) 02/14/19 16:45 Albumin 4.2 g/dL (3.5-5.0) 02/14/19 16:45 Lipase 45.8 U/L (23-300) 02/14/19 16:45 Urine Color YELLOW 02/14/19 16:45 Urine Appearance SLIGHTLY-CLOUDY 02/14/19 16:45 Urine pH 5.0 (5.0-9.0) 02/14/19 16:45 Ur Specific [place] 1.016 02/14/19 16:45 Urine Protein NEGATIVE mg/dL (NEGATIVE) 02/14/19 16:45 Urine Glucose (UA) NEGATIVE mg/dL (NEGATIVE) 02/14/19 16:45 Urine Ketones NEGATIVE mg/dL (NEGATIVE) 02/14/19 16:45 Urine Blood NEGATIVE (NEGATIVE) 02/14/19 16:45 Urine Nitrite (Reflex) NEGATIVE (NEGATIVE) 02/14/19 16:45 Urine Bilirubin NEGATIVE (NEGATIVE) 02/14/19 16:45 Urine Urobilinogen NEGATIVE mg/dL (<2.0) 02/14/19 16:45 Leukocyte Esterase Rfl NEGATIVE (NEGATIVE) 02/14/19 16:45 Urine RBC (Auto) 2 /HPF 02/14/19 16:45 U Hyaline Cast (Auto) 4 /LPF 02/14/19 16:45 Urine Bacteria (Auto) 1+ /HPF 02/14/19 16:45 Urine WBC (Reflex) 2 /HPF 02/14/19 16:45 Squamous Epi Cells Auto 2 /HPF 02/14/19 16:45 Urine Mucus (Auto) RARE /LPF 02/14/19 16:45 Urine Ascorbic Acid 20 (NEGATIVE) H 02/14/19 16:45 Stool Occult Blood POSITIVE (NEGATIVE) 02/15/19 08:40 Blood Type O POSITIVE 02/14/19 16:45 Antibody Screen NEGATIVE 02/14/19 16:45 Plan Plan of Treatment: The patient is discharged home in stable condition. She is advised to hold her Xarelto until directed to be resumed by either her PCP or establish farmworker rice. She is instructed to follow-up with her PCP within 1 week and with her farmworker rice as scheduled on the . Take all other medications as previously prescribed. Eat a cardiac diet. Return to emergency department as needed for any concerning symptoms. Time Spent: Greater than 30 Minutes Stroke Is this a Stroke Patient?: No Acute Heart Failure - Is this a Heart Failure Patient?: No
[2019-02-15] MEDS ORDERED: (PENDING PHARMACY ID) (Rosuvastatin Calcium [Crestor 20 Mg Tablet] 20 MG) PO SCH (18:00)
[2019-02-15] MEDS ORDERED: METOPROLOL TARTRATE 50 MG TABLET PO SCH (18:00)
[2019-02-15] MEDS ORDERED: ATORVASTATIN CALCIUM 40 MG TABLET PO SCH (22:00)
[2019-02-16] MEDS ORDERED: (PENDING PHARMACY ID) (Levothyroxine Sodium [Levothyroxine Sodium] 125 MCG) PO SCH (06:00)
[2019-02-16] MEDS ORDERED: LEVOTHYROXINE SODIUM 0.1 MG TABLET PO SCH (06:00)
[2019-02-16] MEDS ORDERED: LEVOTHYROXINE SODIUM 0.025 MG TABLET PO SCH (06:00)
== END 2019-02-15 11:45 | disposition home or self-care (01) | DRG 379 ==
LOC: ER 16:07 → EH 20:09 → 3W 21:49
PROVIDERS: ADMIT Internal Medicine; ATTEND Internal Medicine
DX: K92.1 Melena (principal); T39.015A Adverse effect of aspirin, initial encounter; I48.91 Unspecified atrial fibrillation; I10 Essential (primary) hypertension; J44.9 Chronic obstructive pulmonary disease, unspecified; E11.9 Type 2 diabetes mellitus without complications; E78.5 Hyperlipidemia, unspecified; Z79.82 Long term (current) use of aspirin; Z88.2 Allergy status to sulfonamides; Z79.02 Long term (current) use of antithrombotics/antiplatelets; Z90.710 Acquired absence of both cervix and uterus; Z87.891 Personal history of nicotine dependence; Z82.49 Family history of ischemic heart disease and other diseases of the circulatory system; Z83.3 Family history of diabetes mellitus; Z79.84 Long term (current) use of oral hypoglycemic drugs; Z79.899 Other long term (current) drug therapy
CPT/HCPCS: 36415; 80048; 80053; 81001; 82272; 83690; 85025; 85610; 85730; 86850; 86900; 86901; 96374; 99284; J3490; J7620; S0164

== ENCOUNTER → 2019-03-31 | Outpatient (CLI) | payer MEDICARE, OTHER ==
--- NOTE | 2019-03-31 09:10 | WOMENS IMAGING REPORT ---
EXAM DESCRIPTION: 3D SCREENING MAMMO BILAT COMPLETED DATE/TIME: 03/31/2019 8:47 am REASON FOR STUDY: Z12.31 SCREENING MAMMO Z12.31 ENCNTR SCREEN MAMMOGRAM FOR MALIGNANT NEOPLASM OF B RE COMPARISON: MULTIPLE SINCE 2009 EXAM PARAMETERS: Views: Standard craniocaudal and mediolateral oblique views of each breast recorded using digital acquisition and breast tomosynthesis. Read with the assistance of CAD. .[facility] - [employer] Version 9.2 LIMITATIONS: None. FINDINGS: No suspicious masses, suspicious calcifications or architectural distortion. No areas of c oncern. Old biopsy clip left breast upper outer quadrant from benign stereotactic biopsy in 2007 IMPRESSION: NEGATIVE MAMMOGRAM. BIRADS 1. BREAST DENSITY: b. There are scattered areas of fibroglandular density. BIRAD: ASSESSMENT: 1 NEGATIVE RECOMMENDATION: ROUTINE SCREENING Please continue yearly bilateral screening mammography/tomosynthesis in March 2020 COMMENT: The patient has been notified of the results by letter per MQSA requirements. Additional no tification policies are in place for contacting patient with suspicious or incomplete findings. Quality ID #[id number]: The [employer] recommends an annual screening mammogram for women aged 40 years or over. This facility utilizes a reminder system to ensure that all patients receive reminder letters, and/or direct phone calls for appointments. This includes reminders for routine scr eening mammograms, diagnostic mammograms, or other Breast Imaging Interventions when appropriate. Th is patient will be placed in the appropriate reminder system. TECHNICAL DOCUMENTATION: FINDING NUMBER: (1) ASSESSMENT: (1) JOB ID: [id number] [employer]- All Rights Reserved Reading location - IP/workstation name: [email or web address]
== END ==
LOC: WI 08:05
PROVIDERS: ATTEND Family Medicine
DX: Z12.31 Encounter for screening mammogram for malignant neoplasm of breast (principal)
CPT/HCPCS: 77063; 77067

== ENCOUNTER → 2019-04-18 | Outpatient (CLI) | payer MEDICARE, OTHER ==
[2019-04-18 11:47] LABS: ABSOLUTE EOSINOPHILS # (AUTO) 0.1 10^3/uL (0.0-0.6); ABSOLUTE MONOCYTES (AUTO) 0.5 10^3/uL (0.1-1.4); ABSOLUTE NEUT (AUTO) 1.7 10^3/uL (1.7-8.2); BASOPHILS % (AUTO) 0.2 % (0-2); EOSINOPHILS % (AUTO) 2.4 % (0-6); HEMATOCRIT 37.4 % (36.0-47.0); HEMOGLOBIN 12.5 g/dL (12.0-15.5); MEAN CORPUSCULAR HEMOGLOBIN 30.2 pg (27.0-33.4); MEAN CORPUSCULAR HGB CONC 33.5 g/dL (32.0-36.0); MEAN CORPUSCULAR VOLUME 90 fl (80-97); MONOCYTES % (AUTO) 15.5 % (3-13); PLATELET COUNT 189 10^3/uL (150-450); RED BLOOD COUNT 4.15 10^6/uL (3.72-5.28); RED CELL DISTRIBUTION WIDTH 14.1 % (11.5-14.0); SEGMENTED NEUTROPHILS % (AUTO) 51.9 % (42-78); TOTAL CELLS COUNTED % (AUTO) 100 %; WHITE BLOOD COUNT 3.2 10^3/uL (4.0-10.5)
== END ==
LOC: OD 11:08
PROVIDERS: ATTEND Family Medicine
DX: Z51.81 Encounter for therapeutic drug level monitoring (principal); Z79.01 Long term (current) use of anticoagulants
CPT/HCPCS: 36415; 85025

== ENCOUNTER → 2019-05-09 | Outpatient (CLI) | payer MEDICARE, OTHER ==
[2019-05-09 11:58] LABS: APPEARANCE,URINE SLIGHTLY-CLOUDY; BILIRUBIN,URINE NEGATIVE (NEGATIVE); COLOR,URINE YELLOW; GLUCOSE, URINE NEGATIVE (NEGATIVE); KETONES,URINE NEGATIVE (NEGATIVE); LEUKOCYTE ESTERASE,URINE NEGATIVE (NEGATIVE); NITRITE,URINE NEGATIVE (NEGATIVE); PROTEIN,URINE NEGATIVE (NEGATIVE); URINE SPECIFIC GRAVITY 1.026; UROBILINOGEN,URINE NEGATIVE mg/dL (<2.0)
[2019-05-09 12:20] LABS: ANION GAP 12 (5-19); BLOOD UREA NITROGEN 17 mg/dL (7-20); CARBON DIOXIDE 23 mmol/L (22-30); CHLORIDE 106 mmol/L (98-107); GLUCOSE 149 mg/dL (75-110); POTASSIUM 4.2 mmol/L (3.6-5.0)
== END ==
LOC: OD 11:05
PROVIDERS: ATTEND Internal Medicine Nephrology
DX: I70.1 Atherosclerosis of renal artery (principal); N28.0 Ischemia and infarction of kidney; I10 Essential (primary) hypertension
CPT/HCPCS: 36415; 80048; 81001

== ENCOUNTER → 2019-05-13 | Outpatient (CLI) | payer MEDICARE, OTHER ==
--- NOTE | 2019-05-13 13:20 | RADIOLOGY REPORT (SQ) ---
EXAM DESCRIPTION: MRA ABDOMEN WITHOUT COMPLETED DATE/TIME: 05/13/2019 12:43 pm REASON FOR STUDY: I70.1 ATHEROSCLEROSIS OF RENAL ARTERY I70.1 ATHEROSCLEROSIS OF RENAL ARTERY COMPARISON: None. TECHNIQUE: Coronal and Axial imaging with T1 and T2 weighting through the kidneys. 3D dxwc-rh-gntzl t noncontrast MRA was performed. Additional 3 dimensional post-processing performed to develop Maxim al Intensity Projection images (MIP) . 3-D MIPs performed at the work station. CONTRAST TYPE AND DOSE: Not required, 3D ewlj-ir-jjcaik noncontrast imaging was performed RENAL FUNCTION: Not required, 3D mzmk-at-kshlob noncontrast imaging was performed LIMITATIONS: None. FINDINGS: KIDNEYS: Normal size. No hydronephrosis or masses on limited T2 weighted imaging through the kidneys. OTHER ABDOMINAL ORGANS: Multiple benign hepatic cysts, the largest is in the left lobe sub- diaphragm atic surface 2.6 cm in size BONY STRUCTURES: No significant finding as visualized. VASCULAR STRUCTURES: RIGHT RENAL ARTERY: A single renal artery. Normal without evidence for stenosis. LEFT RENAL ARTERY: A single renal artery. Normal without evidence for stenosis. AORTA, SMA, CELIAC AXIS AND ILIAC ARTERIES: No significant finding or stenosis. OTHER: No other significant finding. IMPRESSION: NORMAL RIGHT AND LEFT RENAL ARTERIES. TECHNICAL DOCUMENTATION: JOB ID: [id number] [employer].- All Rights Reserved Reading location - IP/workstation name: [email or web address]
== END ==
LOC: RAD 11:58
PROVIDERS: ATTEND Internal Medicine Nephrology
DX: I70.1 Atherosclerosis of renal artery (principal)
CPT/HCPCS: C8901

== ENCOUNTER → 2019-07-12 | Outpatient (CLI) | payer MEDICARE, OTHER ==
[2019-07-12 12:27] LABS: HEMATOCRIT 37.4 % (36.0-47.0); HEMOGLOBIN 13.1 g/dL (12.0-15.5); MEAN CORPUSCULAR HEMOGLOBIN 31.4 pg (27.0-33.4); MEAN CORPUSCULAR HGB CONC 35.1 g/dL (32.0-36.0); MEAN CORPUSCULAR VOLUME 90 fl (80-97); PLATELET COUNT 218 10^3/uL (150-450); RED BLOOD COUNT 4.17 10^6/uL (3.72-5.28); RED CELL DISTRIBUTION WIDTH 15.3 % (11.5-14.0)
[2019-07-12 12:52] LABS: ALKALINE PHOSPHATASE 96 U/L (38-126); ANION GAP 8 (5-19); ASPARTATE AMINO TRANSFERASE 22 U/L (14-36); BILIRUBIN,DIRECT 0.1 mg/dL (0.0-0.4); BILIRUBIN,TOTAL 0.6 mg/dL (0.2-1.3); BLOOD UREA NITROGEN 11 mg/dL (7-20); CALCIUM 9.3 mg/dL (8.4-10.2); CARBON DIOXIDE 28 mmol/L (22-30); CHLORIDE 103 mmol/L (98-107); CHOLESTEROL 122.22 mg/dL (0-200); CREATINE KINASE 108 U/L (30-135); GLUCOSE 102 mg/dL (75-110); POTASSIUM 4.3 mmol/L (3.6-5.0); TOTAL PROTEIN 7.4 g/dL (6.3-8.2); TRIGLYCERIDES 57 mg/dL (<150)
[2019-07-12 12:53] LABS: FREE T3 3.08 pg/mL (2.77-5.27); FREE T4 (FREE THYROXINE) 1.69 ng/dL (0.78-2.19)
[2019-07-12 12:58] LABS: ABSOLUTE LYMPHOCYTES# (MANUAL) 2.2 10^3/uL (0.5-4.7); ABSOLUTE MONOCYTES # (MANUAL) 0.6 10^3/uL (0.1-1.4); ANISOCYTOSIS SLIGHT; BASOPHILS % (MANUAL) 2 % (0-2); EOSINOPHILS % (MANUAL) 2 % (0-6); LYMPHOCYTES % (MANUAL) 43 % (13-45); MONOCYTES % (MANUAL) 12 % (3-13); OVALOCYTES 1+; PLATELET COMMENT ADEQUATE; POIKILOCYTOSIS 1+; SEGMENTED NEUTROPHILS % (MAN) 41 % (42-78); TOTAL CELLS COUNTED 100
[2019-07-12 13:04] LABS: DIRECT LDL 66 mg/dL (<100)
[2019-07-12 13:07] LABS: THYROID STIMULATING HORMONE 0.78 uIU/mL (0.47-4.68)
[2019-07-14 04:36] LABS: CREATININE URINE 131.6 mg/dL (Not Estab.); MICROALBUMIN URINE 10.2 ug/mL (Not Estab.)
== END ==
LOC: OD 10:47
PROVIDERS: ATTEND Family Medicine
DX: E89.0 Postprocedural hypothyroidism (principal); E11.9 Type 2 diabetes mellitus without complications; D64.9 Anemia, unspecified; E78.5 Hyperlipidemia, unspecified
CPT/HCPCS: 36415; 80053; 80061; 82043; 82550; 82570; 83036; 84439; 84443; 84481; 85025

== ENCOUNTER → 2020-01-09 | Outpatient (CLI) | payer MEDICARE, OTHER ==
[2020-01-09 10:39] LABS: ANION GAP 9 (5-19); BLOOD UREA NITROGEN 19 mg/dL (7-20); CALCIUM 9.4 mg/dL (8.4-10.2); CARBON DIOXIDE 27 mmol/L (22-30); CHLORIDE 102 mmol/L (98-107); GLUCOSE 120 mg/dL (75-110); POTASSIUM 4.8 mmol/L (3.6-5.0)
== END ==
LOC: OD 08:49
PROVIDERS: ATTEND Family Medicine
DX: E11.9 Type 2 diabetes mellitus without complications (principal)
CPT/HCPCS: 36415; 80048; 83036

== ENCOUNTER → 2020-02-03 | Outpatient (CLI) | payer MEDICARE, OTHER ==
[2020-02-03 09:49] LABS: ABSOLUTE BASOPHILS # (AUTO) 0.1 10^3/uL (0.0-0.2); ABSOLUTE EOSINOPHILS # (AUTO) 0.1 10^3/uL (0.0-0.6); ABSOLUTE LYMPHOCYTES (AUTO) 1.3 10^3/uL (0.5-4.7); ABSOLUTE MONOCYTES (AUTO) 0.6 10^3/uL (0.1-1.4); ABSOLUTE NEUT (AUTO) 1.8 10^3/uL (1.7-8.2); BASOPHILS % (AUTO) 1.5 % (0-2); HEMATOCRIT 38.5 % (36.0-47.0); HEMOGLOBIN 13.3 g/dL (12.0-15.5); MEAN CORPUSCULAR HEMOGLOBIN 31.5 pg (27.0-33.4); MEAN CORPUSCULAR HGB CONC 34.6 g/dL (32.0-36.0); MEAN CORPUSCULAR VOLUME 91 fl (80-97); MONOCYTES % (AUTO) 14.8 % (3-13); PLATELET COUNT 203 10^3/uL (150-450); RED BLOOD COUNT 4.23 10^6/uL (3.72-5.28); RED CELL DISTRIBUTION WIDTH 14.9 % (11.5-14.0); SEGMENTED NEUTROPHILS % (AUTO) 47.7 % (42-78); TOTAL CELLS COUNTED % (AUTO) 100 %; WHITE BLOOD COUNT 3.8 10^3/uL (4.0-10.5)
[2020-02-03 10:14] LABS: ALKALINE PHOSPHATASE 87 U/L (38-126); ANION GAP 9 (5-19); ASPARTATE AMINO TRANSFERASE 27 U/L (14-36); BILIRUBIN,DIRECT 0.3 mg/dL (0.0-0.4); BILIRUBIN,TOTAL 0.7 mg/dL (0.2-1.3); BLOOD UREA NITROGEN 14 mg/dL (7-20); CALCIUM 9.5 mg/dL (8.4-10.2); CARBON DIOXIDE 29 mmol/L (22-30); CHLORIDE 101 mmol/L (98-107); CHOLESTEROL 127.13 mg/dL (0-200); GLUCOSE 132 mg/dL (75-110); POTASSIUM 4.4 mmol/L (3.6-5.0); TOTAL PROTEIN 7.1 g/dL (6.3-8.2); TRIGLYCERIDES 50 mg/dL (<150)
[2020-02-03 10:25] LABS: DIRECT LDL 69 mg/dL (<100)
[2020-02-03 10:26] LABS: FREE T3 2.88 pg/mL (2.77-5.27); FREE T4 (FREE THYROXINE) 1.54 ng/dL (0.78-2.19)
[2020-02-03 10:41] LABS: THYROID STIMULATING HORMONE 0.51 uIU/mL (0.47-4.68)
[2020-02-04 10:37] LABS: CREATININE URINE 127.5 mg/dL (Not Estab.); MICROALBUMIN URINE 7.7 ug/mL (Not Estab.)
== END ==
LOC: OD 08:42
PROVIDERS: ATTEND Family Medicine
DX: E78.5 Hyperlipidemia, unspecified (principal); E11.9 Type 2 diabetes mellitus without complications; E89.0 Postprocedural hypothyroidism; Z79.01 Long term (current) use of anticoagulants
CPT/HCPCS: 36415; 80053; 80061; 82043; 82570; 83036; 84439; 84443; 84481; 85025

== ENCOUNTER → 2020-04-05 | Outpatient (CLI) | payer MEDICARE, OTHER ==
--- NOTE | 2020-04-05 10:45 | WOMENS IMAGING REPORT ---
EXAM DESCRIPTION: BONE DENSITY HIP/SPINE IMAGES COMPLETED DATE/TIME: 04/05/2020 10:26 am REASON FOR STUDY: Z78.0 ASYMPTOMATIC MENOPAUSAL STATE Z12.31 ENCNTR SCREEN MAMMOGRAM FOR MALIGNANT NEOPLASM OF EMILIE Z78.0 ASYMPTOMATIC MENOPAUSAL STATE COMPARISON: 03/22/2017 TECHNIQUE: Dual-Energy X-ray Absorptiometry (DEXA) of the AP Spine and Hip. LIMITATIONS: None. FINDINGS: LUMBAR SPINE: The bone mineral density (BMD) measured from L1-L4 in the AP projection correlates with a T-score of 1.7, which is normal as defined by the World Health Organization. BMD Change vs Baseline: +11.8% HIP: The bone mineral density (BMD) measured in the left hip correlates with a T-score of 0.0, which is no rmal as defined by the World Health Organization. BMD Change vs Baseline: -6.9% 10 year Fracture Risk Assessment: Major Osteoporotic Fracture: Not available. Hip Fracture: Not available. IMPRESSION: 1. LUMBAR SPINE WHO CLASSIFICATION: NORMAL. 2. HIP WHO CLASSIFICATION: NORMAL. OVERALL ASSESSMENT: WHO CLASSIFICATION: NORMAL. COMMENT: The World Health Organization defines low BMD as follows: T-score: Normal: At or above -1.0 Osteopenia: Between -1.0 and -2.5 Osteoporosis: At or below -2.5 without fractures Established osteoporosis: At or below -2.5 with fractures In general, you may wish to consider: Diagnosis Treatment Follow-up DEXA Normal BMD Prevention 2-3 years Osteopenia Prevention/Therapy 1-2 years Osteoporosis Therapy Yearly TECHNICAL DOCUMENTATION: JOB ID: [id number] 2010 [employer]- All Rights Reserved Reading location - IP/workstation name: [email or web address]
--- NOTE | 2020-04-05 11:27 | WOMENS IMAGING REPORT ---
EXAM DESCRIPTION: 3D SCREENING MAMMO BILAT IMAGES COMPLETED DATE/TIME: 04/05/2020 10:26 am REASON FOR STUDY: Z12.31 ENCNTR SCREEN MAMMOGRAM FOR MALIGNANT NEOPLASM OF BREAST Z12.31 ENCNTR SCR EEN MAMMOGRAM FOR MALIGNANT NEOPLASM OF EMILIE Z78.0 ASYMPTOMATIC MENOPAUSAL STATE COMPARISON: Multiple since 2010 EXAM PARAMETERS: Standard craniocaudal and mediolateral oblique views of each breast recorded using digital acquisition and breast tomosynthesis. Read with the assistance of CAD. .[facility] - [employer] Maxillofacial Surgeon Version 9.2 LIMITATIONS: None. FINDINGS: Findings present which are benign by mammographic criteria. No suspicious masses, calcific ations or architectural distortion. Pertinent benign findings: Benign calcifications bilaterally. Left breast upper outer quadrant biops y clip Benign mammographic findings may include one or more of the following: Smooth masses, popcorn/rim/coa rse calcifications, asymmetries, post-procedure changes, and lesions with long-standing stability. IMPRESSION: BENIGN MAMMOGRAPHIC FINDINGS. BIRADS 2 BREAST DENSITY: b. There are scattered areas of fibroglandular density. BIRAD: ASSESSMENT: 2 BENIGN FINDING(S) RECOMMENDATION: ROUTINE SCREENING Please continue yearly bilateral screening mammography/tomosynthesis in March 2021 COMMENT: The patient has been notified of the results by letter per [place] requirements. Additional no tification policies are in place for contacting patient with suspicious or incomplete findings. Quality ID #[id number]: The [employer] recommends an annual screening mammogram for women aged 40 years or over. This facility utilizes a reminder system to ensure that all patients receive reminder letters, and/or direct phone calls for appointments. This includes reminders for routine scr eening mammograms, diagnostic mammograms, or other Breast Imaging Interventions when appropriate. Th is patient will be placed in the appropriate reminder system. TECHNICAL DOCUMENTATION: FINDING NUMBER: (1) ASSESSMENT: (1) JOB ID: [id number] 2010 [employer]- All Rights Reserved Reading location - IP/workstation name: [email or web address]
== END ==
LOC: WI 09:58
PROVIDERS: ATTEND Family Medicine
DX: Z12.31 Encounter for screening mammogram for malignant neoplasm of breast (principal); Z78.0 Asymptomatic menopausal state
CPT/HCPCS: 77063; 77067; 77080